=== PATIENT | male | born 1945 | race Caucasian/White ===

== ENCOUNTER 2018-09-22 00:23 | Outpatient (CLI) | payer MEDICARE | END 2018-09-22 00:24 | disposition critical access hospital (66) | LOC: EMS 00:23 | PROVIDERS: ATTEND Surgery | DX: S49.91XA Unspecified injury of right shoulder and upper arm, initial encounter (principal); W01.0XXA Fall on same level from slipping, tripping and stumbling without subsequent striking against object, initial encounter; Y93.01 Activity, walking, marching and hiking; Y92.003 Bedroom of unspecified non-institutional (private) residence as the place of occurrence of the external cause | CPT/HCPCS: A0425; A0429 ==

== ENCOUNTER 2018-09-22 00:24 | Emergency (ER) | payer MEDICARE ==
--- NOTE | 2018-09-22 00:43 | ED Physician Documentation ---
PD HPI Fall - Stated complaint Stated Complaint: GLF - Chief complaint Chief Complaint: Trauma Ext - History obtained from History obtained from: Patient - History of Present Illness Mechanism of injury: Tripped Fall distance: Standing position Where injury occurred: Home Timing - onset: Enter time (21:00), Today Injury(ies) location: Right Upper Extremity, Right Lower Extremity Pain level max: 9 Pain level now: 3 Quality of pain: Pain Associated symptoms: No: LOC Symptoms improve with: Rest, Position Worsens with: Movement, Palpation Contributing factors: No: Anticoagulated Similar symptoms before: Has not had sx before Recently seen: Not recently seen - Additional information Additional information: at approximately 9 PM, patient tripped and fell while walking his dog; patient fell onto his right side onto concrete, had sudden onset right shoulder pain. He was able to summon help from neighbors who then helped him back into his house and into bed. Patient tried to get out of bed after resting for a few hours and found that he could not move the right shoulder due to pain. Despite this, he was able to work his way to sitting up on the edge of the bed and tried to get up to use the bathroom, but fell to ground because of right hip pain when he tried to bear weight on the RLE. Review of Systems Cardiac: reports: Reviewed and negative Respiratory: reports: Reviewed and negative GI: reports: Reviewed and negative Musculoskeletal: reports: Extremity pain, Joint pain. denies: Neck pain, Back pain Neurologic: denies: Generalized weakness, Focal weakness, Numbness, Headache, Head injury, LOC PD PAST MEDICAL HISTORY - Past Medical History Past Medical History: Yes Cardiovascular: Hypertension, High cholesterol, Other Musculoskeletal: Gout Other Past Medical History: Angina - Past Surgical History Past Surgical History: Yes General: Gastric surgery Ortho: Hip replacement, Knee replacement, Other Cardiovascular: Coronary stent HEENT: Tonsil/Adenoidectomy - Present Medications Home Medications: Ambulatory Orders Medication Instructions Recorded Confirmed Allopurinol 1 tab PO DAILY 09/22/18 09/22/18 Atorvastatin [Lipitor] 10 mg PO DAILY 09/22/18 09/22/18 amLODIPine [Norvasc] 5 mg PO DAILY 09/22/18 09/22/18 oxyCODONE [Roxicodone] 5 mg PO Q4-6H #20 tablet 09/22/18 - Allergies Allergies/Adverse Reactions: Allergies Allergy/AdvReac Type Severity Reaction Status Date / Time No Known Drug Allergies Allergy Verified 09/22/18 00:49 - Social History Does the pt smoke?: No Smoking Status: Never smoker Does the pt drink ETOH?: Yes ETOH Use: Liquor Does the pt have substance abuse?: No - Immunizations Immunizations are current?: Yes - POLST Patient has POLST: No PD ED PE NORMAL - Vitals Vital signs reviewed: Yes - General General: Alert and oriented X 3, No acute distress (NAD at rest, painful distress with movement involving right shoulder, right hip), Well developed/nourished - HEENT HEENT: Atraumatic, Moist mucous membranes - Neck Neck: No bony TTP - Cardiac Cardiac: RRR, No murmur - Respiratory Respiratory: No respiratory distress, Clear bilaterally - Abdomen Abdomen: Soft, Non tender - Back Back: No spinal TTP - Derm Derm: Normal color, Warm and dry - Neuro Neuro: Alert and oriented X 3, 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, No motor deficit, No sensory deficit, Normal speech Eye Opening: Spontaneous Motor: Obeys Commands Verbal: Oriented GCS Score: 15 PD ED PE EXPANDED - Extremities Extremities: Tenderness (mild TTP right hip (zymbyef-xp-qbyfsl pressure)), Limited ROM (mild limited flexion, abduction right hip due to pain) JANETT UE/Hands Visual: 1 - swelling, tenderness Results - Vitals Vitals: Vital Signs - 24 hr 09/22/18 09/22/18 09/22/18 00:28 01:35 02:19 Temperature 36.8 C Heart Rate 72 70 73 Respiratory 18 16 16 Rate Blood Pressure 158/87 H 171/87 H 164/86 H O2 Saturation 96 95 96 09/22/18 09/22/18 09/22/18 02:45 04:58 06:22 Temperature Heart Rate 74 68 64 Respiratory 16 16 18 Rate Blood Pressure 163/92 H 150/71 H 153/80 H O2 Saturation 95 99 95 09/22/18 09/22/18 10:11 13:16 Temperature Heart Rate 60 73 Respiratory 18 18 Rate Blood Pressure 153/110 H 163/94 H O2 Saturation 96 97 Oxygen O2 Source Room air - Labs Labs: Laboratory Tests 09/22/18 09/22/18 00:35 00:35 WBC 13.1 H RBC 5.02 Hgb 15.2 Hct 46.4 MCV 92.3 MCH 30.3 MCHC 32.8 RDW 16.0 H Plt Count 276 MPV 7.7 Neut # (Auto) 10.6 H Lymph # (Auto) 1.3 L [place] # (Auto) 1.0 Eos # (Auto) 0.1 Baso # (Auto) 0.0 Absolute Nucleated RBC 0.00 Nucleated RBC % 0.0 Sodium 136 Potassium 3.9 Chloride 99 L Carbon Dioxide 28 Anion Gap 9.0 BUN 15 Creatinine 0.7 Estimated GFR (MDRD) 110 Glucose 107 H Calcium 9.1 Total Bilirubin 0.4 AST 34 ALT 29 Alkaline Phosphatase 66 Total Protein 7.2 Albumin 4.3 Globulin 2.9 Albumin/Globulin Ratio 1.5 Lipase 31 Ethyl Alcohol 13.4 - Rads (name of study) xray right shoulder Radiology: Prelim report reviewed, See rad report xray right hip Radiology: Prelim report reviewed, See rad report CT right hip Radiology: Prelim report reviewed, See rad report PD MEDICAL DECISION MAKING - ED course Complexity details: reviewed results, re-evaluated patient, considered differential, d/w patient ED course: D/W Dr. Abrams; recommends sling for RUE but this injury does not necessitate admission to hospital. We also discussed the hip xrays and it was decided CT hip would be performed to further look for injury. However, if no fracture on CT, there is no indication for hospitalization from orthopedic standpoint. CT hip does not demonstrate fracture. However, patient is only able to bear very minimal weight on RLE, and cannot otherwise move the RLE to take a step (due to pain with movement). D/W Dr. Verde; he recommends hold in ED for SW consult for consideration of placement options. S/O to Dr. Cisneros (on-coming EDMD) at 7 AM pending SW consult as well as MRI (right hip) results. Departure - Departure Disposition: 01 Home, Self Care Clinical Impression: Hip fracture Qualifiers: Encounter type: initial encounter Fracture type: closed Laterality: right Qualified Code(s): S72.001A - Fracture of unspecified part of neck of right femur, initial encounter for closed fracture Shoulder fracture Qualifiers: Encounter type: initial encounter Fracture type: closed Laterality: right Qualified Code(s): S42.91XA - Fracture of right shoulder girdle, part unspecified, initial encounter for closed fracture Condition: Good Instructions: Fx Hip, ED Fx Shoulder Follow-Up: Braydon Cochran MD [Primary Care Provider] - Romeo Dubon MD [Provider Admit Priv/Credential] - Prescriptions: oxyCODONE [Roxicodone] 5 mg PO Q4-6H #20 tablet Comments: You fractured both the shoulder and the hip Both are stable fractures and orthopedics advises you should follow up in their office but do not need surgery For the shoulder injury you should wear the sling for comfort and stabilization but need to do some gentle pendulum exercises every day to prevent the shoulder from developing adhesions and scar tissue For the hip you can touch touch weight bear with a walker - but not yet because you cannot use a walker with your broken arm I have prescribed medication for the pain - you will need to have your primary care doctor prescribe any refills because pain medication prescriptions are carefully monitored Recommend that patient receive home health physical therapy while recovering at [facility] Discharge Date/Time: 09/22/18 15:42
--- NOTE | 2018-09-22 01:47 | XRAY Report ---
Reason: fall, pain, deformity Procedure Date: 09/22/2018 Accession Number: [id number] / [id number] Procedure: XR - Humerus RT CPT Code: FULL RESULT: EXAM: RIGHT SHOULDER RADIOGRAPHY RIGHT HUMERUS RADIOGRAPHY EXAM DATE: 09/22/2018 12:51 AM. CLINICAL HISTORY: Fall, pain, deformity. COMPARISON: HUMERUS RT 09/22/2018 12:51 AM. TECHNIQUE: 2 views shoulder. 2 views humerus. FINDINGS: Bones: There is a right-sided glenohumeral prosthesis. There is a mildly comminuted and mildly displaced obliquely oriented proximal humeral shaft fracture in the periprosthesis region. No definite evidence of loosening evident on this exam. Fracture deformities of the right lateral ribs, old in appearance. Joints: Prosthesis at the right glenohumeral joint. No dislocation is demonstrated. Soft Tissues: There is mild localized soft tissue swelling. IMPRESSION: 1. Mildly comminuted and displaced fracture of the proximal humeral shaft adjacent to the prosthesis. 2. No dislocation evident. RADIA RADIA
--- NOTE | 2018-09-22 01:47 | XRAY Report ---
Reason: fall, pain, deformity Procedure Date: 09/22/2018 Accession Number: [id number] / [id number] Procedure: XR - Shoulder 2 View RT CPT Code: FULL RESULT: EXAM: RIGHT SHOULDER RADIOGRAPHY RIGHT HUMERUS RADIOGRAPHY EXAM DATE: 09/22/2018 12:51 AM. CLINICAL HISTORY: Fall, pain, deformity. COMPARISON: HUMERUS RT 09/22/2018 12:51 AM. TECHNIQUE: 2 views shoulder. 2 views humerus. FINDINGS: Bones: There is a right-sided glenohumeral prosthesis. There is a mildly comminuted and mildly displaced obliquely oriented proximal humeral shaft fracture in the periprosthesis region. No definite evidence of loosening evident on this exam. Fracture deformities of the right lateral ribs, old in appearance. Joints: Prosthesis at the right glenohumeral joint. No dislocation is demonstrated. Soft Tissues: There is mild localized soft tissue swelling. IMPRESSION: 1. Mildly comminuted and displaced fracture of the proximal humeral shaft adjacent to the prosthesis. 2. No dislocation evident. RADIA RADIA
--- NOTE | 2018-09-22 01:51 | XRAY Report ---
Reason: fall, pain, limited ROM Procedure Date: 09/22/2018 Accession Number: [id number] / [id number] Procedure: XR - Hip w/Pelvis 2-3V RT CPT Code: FULL RESULT: EXAM: RIGHT HIP AND PELVIS RADIOGRAPHY EXAM DATE: 09/22/2018 12:51 AM. HISTORY: Fall, pain, limited ROM. COMPARISONS: None. TECHNIQUE: 1 view of the pelvis and 1 view of the hip. A total of 3 exposures are provided for review. FINDINGS: Bones: Bones are severely osteopenic. No definite acute fracture evident on this exam. Sacrum is obscured by overlying gas and fecal matter. Joints: There is a right total hip prosthesis without evidence of loosening or infection seen at this time. Mild left hip degenerative change. Severe symphysis pubis degenerative change. Severe lower lumbar degenerative change. Soft Tissues: Normal. No soft tissue swelling. IMPRESSION: No definite acute bony abnormality demonstrated. Osteopenia reduces sensitivity and specificity. If the patient is unable to bear weight, further assessment could be considered with MRI. RADIA
[2018-09-22 02:33] LABS: BASOPHILS % (AUTO) 0.3 %; EOSINOPHILS # (AUTO) 0.1 10^3/uL (0.0-0.7); EOSINOPHILS % (AUTO) 0.9 %; HGB - HEMOGLOBIN 15.2 g/dL (14.0-18.0); LYMPHOCYTES # (AUTO) 1.3 10^3/uL (1.5-3.5); LYMPHOCYTES % (AUTO) 10.3 %; MEAN CORPUSCULAR HEMOGLOBIN 30.3 pg (27.0-31.0); MEAN CORPUSCULAR HGB CONC 32.8 g/dL (32.0-36.0); MEAN CORPUSCULAR VOLUME 92.3 fL (80.0-94.0); MEAN PLATELET VOLUME 7.7 fL (7.4-11.4); MONOCYTES % (AUTO) 7.6 %; NEUTROPHILS # (AUTO) 10.6 10^3/uL (1.5-6.6); NEUTROPHILS % (AUTO) 80.9 %; PLT - PLATELET COUNT 276 10^3/uL (130-450); RED BLOOD COUNT 5.02 10^6/uL (4.70-6.10); WHITE BLOOD COUNT 13.1 x10^3/uL (4.8-10.8)
[2018-09-22 02:42] LABS: ALBUMIN 4.3 g/dL (3.2-5.5); ALBUMIN/GLOBULIN RATIO 1.5 (1.0-2.2); BILIRUBIN,TOTAL 0.4 mg/dL (0.2-1.0); CALCIUM 9.1 mg/dL (8.5-10.3); CREATININE 0.7 mg/dL (0.6-1.2); TOTAL PROTEIN 7.2 g/dL (6.7-8.2)
--- NOTE | 2018-09-22 02:54 | CT Report ---
Reason: right hip pain, unable to bear weight Procedure Date: 09/22/2018 Accession Number: [id number] / [id number] Procedure: CT - Lower Extremity Right W/O CPT Code: FULL RESULT: EXAM: RIGHT HIP CT WITHOUT CONTRAST EXAM DATE: 09/22/2018 02:42 AM. CLINICAL HISTORY: Right hip pain, unable to bear weight. COMPARISON: HIP W/PELVIS 2-3V RT 09/22/2018 12:51 AM. TECHNIQUE: Thin-section axial images were acquired of the hip without contrast. Post-processing: Coronal and sagittal reformats. Other: None. In accordance with CT protocol optimization, one or more of the following dose reduction techniques were utilized for this exam: automated exposure control, adjustment of mA and/or KV based on patient size, or use of iterative reconstructive technique. FINDINGS: Bones: The bones are diffusely osteopenic. There are no fractures of the pelvis. There is a total right hip replacement. There are no dislocations. There are pars defects at the L5 level of the spine and grade 2 spondylolisthesis. There is autofusion across the level of this disk with large bridging osteophytes. Joints: Total right hip replacement. The left hip is intact. No fractures nor dislocations. Musculature: Normal. No fatty atrophy. Other: There is a large amount of stool in the colon. IMPRESSION: 1. No acute fractures nor dislocations. 2. Osteoporosis. 3. 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 RADIA ADDENDUM: 09/22/18 09:51 After further review, there is a subtle, thin, linear, transversely oriented, lucent focus with associated cortical discontinuity at the lateral, subtrochanteric portion of the proximal right femur. This is also seen on the corresponding radiographs from 09/22/2018, and is suspicious for a nondisplaced incomplete fracture. The linear lucent focus is approximately 6.3 cm distal to the superior margin of the greater trochanter. Findings discussed with Dr. Cisneros on 09/22/2018, time 9:59 AM.
[2018-09-22] MEDS ORDERED: MORPHINE 2 MG/ML CARPUJECT IVP STA (04:15)
--- NOTE | 2018-09-22 09:52 | MRI Report ---
Reason: fall, injury, unable to weight-bear Procedure Date: 09/22/2018 Accession Number: [id number] / [id number] Procedure: MRI - Hip RT W/O CPT Code: FULL RESULT: EXAM: RIGHT HIP MRI WITHOUT CONTRAST EXAM DATE: 09/22/2018 09:26 AM. CLINICAL HISTORY: Unable to bear weight after the fall. Previous right hip arthroplasty. COMPARISON: CT right hip from 09/22/2018. TECHNIQUE: Multiplanar, multisequence T1-weighted and fluid-sensitive, small jjujj-hl-wrhc sequences of the hip and large aoqsm-tu-yktj sequences of the pelvis without contrast. Other: None. FINDINGS: As seen on the previous CT, there are postoperative changes from previous right total hip arthroplasty. The right hip prosthesis causes artifact. Therefore, evaluation of the osseous structures and adjacent soft tissues of the right hip is technically limited. No definitive fracture or bone lesion is seen. There is edema within the visualized proximal aspect of the vastus intermedius muscle. No hip dislocation or joint effusion. Pelvic Cavity: The visualized viscera are unremarkable. No lymphadenopathy. No free fluid in the pelvis. Other: The visualized sciatic nerve is unremarkable. No bursitis. The subcutaneous tissues are unremarkable. IMPRESSION: 1. Previous right total hip arthroplasty. The right hip prosthesis causes artifact, and technically limits evaluation of the osseous structures and adjacent soft tissues at the right hip. 2. No definite MR evidence of acute fracture or bone lesion. 3. Edema within the visualized proximal aspect of the vastus intermedius muscle. RADIA MUSCULOSKELETAL RADIOLOGY SECTION ADDENDUM: 09/22/18 10:00 The edema within the vastus intermedius muscle is suggestive of strain or contusion. Findings discussed with Dr. Cisneros on 09/22/2018, time 9:59 AM.
--- NOTE | 2018-09-22 10:01 | ED Physician Documentation ---
History of Present Illness - Stated complaint Stated Complaint: GLF - Chief complaint Chief Complaint: Trauma Ext Review of Systems Musculoskeletal: reports: Extremity pain PD PAST MEDICAL HISTORY - Past Medical History Past Medical History: Yes Cardiovascular: Hypertension, High cholesterol, Other Musculoskeletal: Gout Other Past Medical History: Angina - Past Surgical History Past Surgical History: Yes General: Gastric surgery Ortho: Hip replacement, Knee replacement, Other Cardiovascular: Coronary stent HEENT: Tonsil/Adenoidectomy - Present Medications Home Medications: Ambulatory Orders Medication Instructions Recorded Confirmed Allopurinol 1 tab PO DAILY 09/22/18 09/22/18 Atorvastatin [Lipitor] 10 mg PO DAILY 09/22/18 09/22/18 amLODIPine [Norvasc] 5 mg PO DAILY 09/22/18 09/22/18 oxyCODONE [Roxicodone] 5 mg PO Q4-6H #20 tablet 09/22/18 - Allergies Allergies/Adverse Reactions: Allergies Allergy/AdvReac Type Severity Reaction Status Date / Time No Known Drug Allergies Allergy Verified 09/22/18 00:49 - Social History Does the pt smoke?: No Smoking Status: Never smoker Does the pt drink ETOH?: Yes ETOH Use: Liquor Does the pt have substance abuse?: No - Immunizations Immunizations are current?: Yes - POLST Patient has POLST: No Results - Vitals Vitals: Vital Signs - 24 hr 09/22/18 09/22/18 09/22/18 00:28 01:35 02:19 Temperature 36.8 C Heart Rate 72 70 73 Respiratory 18 16 16 Rate Blood Pressure 158/87 H 171/87 H 164/86 H O2 Saturation 96 95 96 09/22/18 09/22/18 09/22/18 02:45 04:58 06:22 Temperature Heart Rate 74 68 64 Respiratory 16 16 18 Rate Blood Pressure 163/92 H 150/71 H 153/80 H O2 Saturation 95 99 95 09/22/18 09/22/18 10:11 13:16 Temperature Heart Rate 60 73 Respiratory 18 18 Rate Blood Pressure 153/110 H 163/94 H O2 Saturation 96 97 Oxygen O2 Source Room air - Labs Labs: Laboratory Tests 09/22/18 09/22/18 00:35 00:35 WBC 13.1 H RBC 5.02 Hgb 15.2 Hct 46.4 MCV 92.3 MCH 30.3 MCHC 32.8 RDW 16.0 H Plt Count 276 MPV 7.7 Neut # (Auto) 10.6 H Lymph # (Auto) 1.3 L [place] # (Auto) 1.0 Eos # (Auto) 0.1 Baso # (Auto) 0.0 Absolute Nucleated RBC 0.00 Nucleated RBC % 0.0 Sodium 136 Potassium 3.9 Chloride 99 L Carbon Dioxide 28 Anion Gap 9.0 BUN 15 Creatinine 0.7 Estimated GFR (MDRD) 110 Glucose 107 H Calcium 9.1 Total Bilirubin 0.4 AST 34 ALT 29 Alkaline Phosphatase 66 Total Protein 7.2 Albumin 4.3 Globulin 2.9 Albumin/Globulin Ratio 1.5 Lipase 31 Ethyl Alcohol 13.4 PD MEDICAL DECISION MAKING - ED course ED course: assumed care 7 AM 73 male tripped and fell last night fell on R side has shoulder and hip pain helped back into house and bed by neighbors later had to go to the bathroom tried to get up and could not bear weight on his R leg and fell again no head neck injury well otherwise no blood thinners 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 by 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 cutting machine 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 Dr Vazquez xray of RUE showed a periprosthetic humerus fx, d/w ortho - rec sling and outpt follow up xray and then CT of hip non diagnostic 2/2 osteopenia - attempted road test and pt unable to bear wt at all admit requested but deferred by hospitalist turned over to me pending SW eval as pt cannot walk and thus cannot go home I went to see the pt awake alert cooperative pain at rest well controlled RUE in a sling, MSV intact - had rings on which were removed by nursing RLE TTP lateral hip, not short or roatetd, able to flex and ext but not able to ABD hip at all due to severe pain rad rec was to get MRI so that has been ordered and pending call from rad at 10 AM - he states MRI is diff to interpret 2/2 artifact but that on his review of xray and CT there is a linear lucency to the lateral subtroch R femur that does not appear to be complete nor extend to the prosthesis with adjacent hematoma of the vastus intermedius d/w ortho Dr Dubon who also sees fx line on plain films medially as well at laterally - advises tx is conservative toe touch wt bearing with a walker of course he cannot use a walker because he also broke his arm so cant go home S assisted with placement for PT and recovery per SW rec I documented need for PT also I rxed pain meds until pt can get same from his own PMD Departure - Departure Disposition: 01 Home, Self Care Clinical Impression: Hip fracture Qualifiers: Encounter type: initial encounter Fracture type: closed Laterality: right Qualified Code(s): S72.001A - Fracture of unspecified part of neck of right femur, initial encounter for closed fracture Shoulder fracture Qualifiers: Encounter type: initial encounter Fracture type: closed Laterality: right Qualified Code(s): S42.91XA - Fracture of right shoulder girdle, part unspecified, initial encounter for closed fracture Condition: Good Instructions: Fx Hip, ED Fx Shoulder Follow-Up: Braydon Cochran MD [Primary Care Provider] - Romeo Dubon MD [Provider Admit Priv/Credential] - Prescriptions: oxyCODONE [Roxicodone] 5 mg PO Q4-6H #20 tablet Comments: You fractured both the shoulder and the hip Both are stable fractures and orthopedics advises you should follow up in their office but do not need surgery For the shoulder injury you should wear the sling for comfort and stabilization but need to do some gentle pendulum exercises every day to prevent the shoulder from developing adhesions and scar tissue For the hip you can touch touch weight bear with a walker - but not yet because you cannot use a walker with your broken arm I have prescribed medication for the pain - you will need to have your primary care doctor prescribe any refills because pain medication prescriptions are carefully monitored Recommend that patient receive home health physical therapy while recovering at [facility] Discharge Date/Time: 09/22/18 15:42
[2018-09-22] MEDS ORDERED: oxyCODONE 5 MG TABLET PO STA (10:46)
[2018-09-22 13:17] VITALS: BP 163/94
== END 2018-09-22 15:42 | disposition home or self-care (01) ==
LOC: EDUNIT# → ED 00:24
DX: S42.351A Displaced comminuted fracture of shaft of humerus, right arm, initial encounter for closed fracture (principal); S72.001A Fracture of unspecified part of neck of right femur, initial encounter for closed fracture; W01.0XXA Fall on same level from slipping, tripping and stumbling without subsequent striking against object, initial encounter; Y93.K1 Activity, walking an animal; Y92.007 Garden or yard of unspecified non-institutional (private) residence as the place of occurrence of the external cause; W06.XXXA Fall from bed, initial encounter; Y92.003 Bedroom of unspecified non-institutional (private) residence as the place of occurrence of the external cause; M85.88 Other specified disorders of bone density and structure, other site; M81.0 Age-related osteoporosis without current pathological fracture; I10 Essential (primary) hypertension; Z96.641 Presence of right artificial hip joint; Z96.611 Presence of right artificial shoulder joint
CPT/HCPCS: 36415; 73030; 73060; 73502; 73700; 73721; 80053; 83690; 85025; 96374; 99284; 99285; A9270; 80320

== ENCOUNTER 2019-07-31 22:30 | Outpatient (CLI) | payer MEDICARE | END 2019-07-31 22:31 | disposition critical access hospital (66) | LOC: EMS 22:30 | PROVIDERS: ATTEND Surgery | DX: S09.90XA Unspecified injury of head, initial encounter (principal); W01.0XXA Fall on same level from slipping, tripping and stumbling without subsequent striking against object, initial encounter; Y93.01 Activity, walking, marching and hiking; Y92.480 Sidewalk as the place of occurrence of the external cause | CPT/HCPCS: A0425; A0429 ==

== ENCOUNTER 2019-07-31 22:47 | Emergency (ER) | payer MEDICARE ==
[2019-07-31 23:24] LABS: BASOPHILS # (AUTO) 0.1 10^3/uL (0.0-0.1); BASOPHILS % (AUTO) 0.9 %; EOSINOPHILS # (AUTO) 0.6 10^3/uL (0.0-0.7); EOSINOPHILS % (AUTO) 6.3 %; HGB - HEMOGLOBIN 15.5 g/dL (14.0-18.0); LYMPHOCYTES # (AUTO) 3.2 10^3/uL (1.5-3.5); LYMPHOCYTES % (AUTO) 33.1 %; MEAN CORPUSCULAR HEMOGLOBIN 31.6 pg (27.0-31.0); MEAN CORPUSCULAR HGB CONC 33.8 g/dL (32.0-36.0); MEAN CORPUSCULAR VOLUME 93.5 fL (80.0-94.0); MEAN PLATELET VOLUME 8.8 fL (7.4-11.4); MONOCYTES # (AUTO) 1.1 10^3/uL (0.0-1.0); MONOCYTES % (AUTO) 10.9 %; NEUTROPHILS # (AUTO) 4.6 10^3/uL (1.5-6.6); NEUTROPHILS % (AUTO) 48.1 %; PLT - PLATELET COUNT 292 10^3/uL (130-450); RED BLOOD COUNT 4.91 10^6/uL (4.70-6.10); WHITE BLOOD COUNT 9.7 x10^3/uL (4.8-10.8)
[2019-07-31 23:40] LABS: ALBUMIN/GLOBULIN RATIO 1.1 (1.0-2.2); BILIRUBIN,TOTAL 0.6 mg/dL (0.2-1.0); CREATININE 0.6 mg/dL (0.6-1.2); TOTAL PROTEIN 7.5 g/dL (6.7-8.2)
--- NOTE | 2019-07-31 23:58 | CT Report ---
Reason: fall head injury Procedure Date: 07/31/2019 Accession Number: [id number] / [id number] Procedure: CT - CERVICAL SPINE WO CPT Code: FULL RESULT: EXAM: CT CERVICAL SPINE WITHOUT CONTRAST DATE: 07/31/2019 11:34 PM. HISTORY: Fall head injury. Neck pain COMPARISONS: None. TECHNIQUE: Thin-section axial images were acquired of the cervical spine without contrast. Post-processing: Coronal and sagittal reformats. Other: None. In accordance with CT protocol optimization, one or more of the following dose reduction techniques were utilized for this exam: automated exposure control, adjustment of mA and/or KV based on patient size, or use of iterative reconstructive technique. FINDINGS: Alignment: No scoliosis or spondylolisthesis. No evidence of traumatic subluxation. Bones: No fracture or bone lesion. Interspace Levels/Facets: C1-C2: Degenerative change is noted at the anterior C1-C2 junction. Mild ligamentous hypertrophy is visualized. There is no significant central canal stenosis. C2-C3: Unremarkable. C3-C4: Marked disk height loss is visualized. Posterior disk osteophyte complex appears to produce significant central canal stenosis. Uncovertebral hypertrophy produces severe bilateral foraminal stenosis. C4-C5: Moderate disk height loss is visualized. Posterior disk osteophyte complex produces moderate narrowing of the central canal. Uncovertebral hypertrophy produces moderate right and mild left foraminal stenosis. C5-C6: Mild degenerative change. No significant stenosis. C6-C7: Mild disk height loss is noted. Minimal posterior discussed effect complex is visualized. Uncovertebral hypertrophy produces minimal neuroforaminal narrowing. C7-T1: Unremarkable. Musculature: Normal. No fatty atrophy. Other: The paravertebral and prevertebral soft tissues are unremarkable. The lung apices are clear. Atherosclerotic calcification is visualized in the carotid arteries. IMPRESSION: 1. No evidence of acute fracture or traumatic subluxation in the cervical spine. 2. Advanced cervical spondylosis at the C3-C4 and C4-C5 levels and to a lesser extent diffusely throughout the cervical spine, as outlined in detail above. RADIA
--- NOTE | 2019-08-01 00:30 | CT Report ---
Reason: fall head injury Procedure Date: 07/31/2019 Accession Number: [id number] / [id number] Procedure: CT - HEAD WO CPT Code: FULL RESULT: EXAM: CT HEAD EXAM DATE: 07/31/2019 11:35 PM. CLINICAL HISTORY: Fall head injury. COMPARISON: BRAIN 08/06/2006 11:12 AM. TECHNIQUE: Multiaxial CT images were obtained from the foramen magnum to the vertex. Reformats: Sagittal and coronal. IV contrast: None. In accordance with CT protocol optimization, one or more of the following dose reduction techniques were utilized for this exam: automated exposure control, adjustment of mA and/or KV based on patient size, or use of iterative reconstructive technique. FINDINGS: Parenchyma: No intraparenchymal hemorrhage. No evidence of mass, midline shift, or CT findings of infarction. Rubi-white differentiation is distinct. Moderate patchy periventricular hypodensity is noted, nonspecific but most likely due to chronic microvascular ischemia. 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 Extraaxial Spaces: Normal for age. No subdural or epidural collections identified. Ventricles: Mild ventricular prominence is noted. Sinuses and Orbits: Moderate mucosal thickening is visualized throughout the ethmoid air cells and to a lesser extent maxillary sinuses. Changes of cataract extraction are noted bilaterally. Bones: No evidence of fracture or calvarial defect. Other: Extensive vascular calcification is visualized in the cavernous segments of the bilateral ICAs and proximal vertebral arteries. IMPRESSION: 1. No evidence of acute traumatic injury or other acute intracranial pathology. 2. Moderate white matter changes typical of chronic microvascular ischemia. Old type infarct in the right basal ganglia. 3. Mild diffuse atrophy and other age-related changes, as detailed above. RADIA
--- NOTE | 2019-08-01 00:34 | ED Physician Documentation ---
PD HPI HEAD INJURY - Stated complaint Stated Complaint: FALL/ETOH - Chief complaint Chief Complaint: Laceration - History obtained from History obtained from: Patient, EMS - History of Present Illness Mechanism of head injury: Fell Where head injury occurred: Street Timing - onset: Today Location of injury: Left, Front Quality of pain: Pain Associated symptoms: No: LOC, AMS, Amnesia, Nausea / vomiting, Neck pain, Paresthesias, Seizures, Ear drainage, Nasal drainage Symptoms improve with: Rest Symptoms worsen with: Palpation, Movement Contributing factors: No: Anticoagulated Similar symptoms before: Has not had sx before Recently seen: Not recently seen - Additional information Additional information: Previously well 74-year-old male has gone to the music festival in [place] and he had some cider to drink. He states he had 3 or 4 ciders and then he was on his way to his car to go back home which is only 2 hours away and he tripped in the parking lot fell against a picnic bench fell against his chest and hit his head. He did not have loss of consciousness he is brought to the hospital with some bleeding to his face and he appears intoxicated. Review of Systems Constitutional: denies: Fever Eyes: denies: Decreased vision Ears: denies: Ear pain Nose: denies: Congestion Throat: denies: Sore throat Cardiac: denies: Chest pain / pressure, Palpitations Respiratory: denies: Dyspnea, Cough GI: denies: Abdominal Pain, Nausea, Vomiting : denies: Dysuria Skin: denies: Rash Musculoskeletal: reports: Neck pain. denies: Back pain, Extremity pain PD PAST MEDICAL HISTORY - Past Medical History Past Medical History: Yes Cardiovascular: Hypertension, High cholesterol, Other Musculoskeletal: Gout - Past Surgical History Past Surgical History: Yes General: Gastric surgery Ortho: Hip replacement, Knee replacement, Other Cardiovascular: Coronary stent HEENT: Tonsil/Adenoidectomy - Present Medications Home Medications: Ambulatory Orders Medication Instructions Recorded Confirmed Atorvastatin [Lipitor] 10 mg PO DAILY 09/22/18 07/31/19 RX: Allopurinol 1 tab PO DAILY 09/22/18 07/31/19 RX: amLODIPine [Norvasc] 5 mg PO DAILY 09/22/18 07/31/19 RX: oxyCODONE [Roxicodone] 5 mg PO Q4-6H #20 tablet 09/22/18 07/31/19 - Allergies Allergies/Adverse Reactions: Allergies Allergy/AdvReac Type Severity Reaction Status Date / Time No Known Drug Allergies Allergy Verified 07/31/19 22:56 - Social History Does the pt smoke?: No Smoking Status: Never smoker Does the pt drink ETOH?: Yes Does the pt have substance abuse?: No - Immunizations Immunizations are current?: Yes - POLST Patient has POLST: No PD ED PE NORMAL - Vitals Vital signs reviewed: Yes (hypertensive ) - General General: Alert and oriented X 3, Well developed/nourished, Other (appears in toxicated ) - HEENT HEENT: PERRL, EOMI, Ears normal, Other (dry mucous membranes and an abrasion to the left zygomatic area. There is no depression or crepitance to suggest fracture. ) - Neck Neck: Supple, no meningeal sign, No bony TTP, Other (There is some tenderness to the paraspinous muscles of the neck.. 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, No motor deficit, No sensory deficit, Other (speech is dysarthric) Eye Opening: Spontaneous Motor: Obeys Commands Verbal: Oriented GCS Score: 15 - Psych Psych: Normal affect, Other (mood is extra happy consistent with intoxication) Results - Vitals Vitals: Vital Signs - 24 hr 07/31/19 07/31/19 08/01/19 22:45 23:32 00:40 Temperature 36.0 C L 36.5 C Heart Rate 75 58 L 88 Respiratory 18 16 18 Rate Blood Pressure 179/103 H 164/78 H 173/87 H O2 Saturation 98 97 99 Oxygen O2 Source Room air - Labs Labs: Laboratory Tests 07/31/19 07/31/19 23:20 23:20 WBC 9.7 RBC 4.91 Hgb 15.5 Hct 45.9 MCV 93.5 MCH 31.6 H MCHC 33.8 RDW 14.0 Plt Count 292 MPV 8.8 Neut # (Auto) 4.6 Lymph # (Auto) 3.2 [place] # (Auto) 1.1 H Eos # (Auto) 0.6 Baso # (Auto) 0.1 Absolute Nucleated RBC 0.00 Nucleated RBC % 0.0 Sodium 137 Potassium 4.1 Chloride 102 Carbon Dioxide 25 Anion Gap 10.0 BUN 16 Creatinine 0.6 Estimated GFR (MDRD) 131 Glucose 94 Calcium 9.0 Total Bilirubin 0.6 AST 34 ALT 26 Alkaline Phosphatase 52 Total Protein 7.5 Albumin 4.0 Globulin 3.5 Albumin/Globulin Ratio 1.1 Lipase 34 Ethyl Alcohol 148.7 - Rads (name of study) CT cervical spine Radiology: Prelim report reviewed (Impression: 1. No evidence of acute fracture or traumatic subluxation in the cervical spine. 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 No evidence of acute traumatic injury or other acute intracranial pathology. 2 Moderate white matter changes typical of chronic microvascular ischemia. Old type infarct in the right basal ganglia. 3 Mild diffuse atrophy and other age-related changes, as detailed above.), EMP read indepedently, See rad report PD MEDICAL DECISION MAKING - ED course Complexity details: reviewed results, re-evaluated patient, considered differential, d/w patient ED course: 7 His abrasion was attended to by the RN and he was dispositioned to home.4-year-old male arrives to the emergency department with a bloody face and alcohol intoxication after having a witnessed fall in which she did not have loss of consciousness. He appeared intoxicated when he arrived to the emergency department with some slurred speech and his blood alcohol was over 148. His level of intoxication was consistent with his blood level of alcohol and a CT of scan of his head and neck were without acute findings. Departure - Departure Disposition: 01 Home, Self Care Clinical Impression: Alcohol intoxication Qualifiers: Complication of substance-induced condition: uncomplicated Qualified Code(s): F10.920 - Alcohol use, unspecified with intoxication, uncomplicated Concussion Qualifiers: Encounter type: initial encounter Loss of consciousness presence/duration: without LOC Qualified Code(s): S06.0X0A - Concussion without loss of consciousness, initial encounter Facial abrasion Qualifiers: Encounter type: initial encounter Qualified Code(s): S00.81XA - Abrasion of other part of head, initial encounter Condition: Stable Instructions: ED Abrasion, ED Alcohol Intoxication, ED Head Injury Closed Follow-Up: Braydon Cochran MD [Primary Care Provider] - Discharge Date/Time: 08/01/19 01:03
[2019-08-01 00:44] VITALS: BP 173/87
== END 2019-08-01 01:03 | disposition home or self-care (01) ==
LOC: EDUNIT# → ED 22:47
DX: F10.120 Alcohol abuse with intoxication, uncomplicated (principal); Y90.6 Blood alcohol level of 120-199 mg/100 ml; S06.0X0A Concussion without loss of consciousness, initial encounter; S00.81XA Abrasion of other part of head, initial encounter; W01.190A Fall on same level from slipping, tripping and stumbling with subsequent striking against furniture, initial encounter; Y93.01 Activity, walking, marching and hiking; Y92.414 Local residential or business street as the place of occurrence of the external cause; I10 Essential (primary) hypertension
CPT/HCPCS: 36415; 70450; 72125; 80053; 80320; 83690; 85025; 99284

== ENCOUNTER 2022-02-23 15:08 | Outpatient (CLI) | payer MEDICARE ==
--- NOTE | 2022-02-23 16:09 | DEXA Report ---
PROCEDURE: Dexa Spine and/or Hip INDICATIONS: ADULT IDIOPATHIC GENERALIZED OSTEOPOROSIS TECHNIQUE: Dual energy x-ray absorptiometry (DXA) was performed on a [employer] System. Regions measur ed are the AP Spine, femoral neck, and if needed forearm. COMPARISON: None. FINDINGS: Lumbar Spine: Bone Mineral Density 1.189 g/cm/cm,T score -0.3, normal Left Femoral Neck: Bone Mineral Density 0.754 g/cm/cm, T score -2.4, osteopenia Total : Bone Mineral Density 0.707 g/cm/cm, T score -2.7, osteoporosis (T score greater or equal to -1.0: NORMAL) (T score from -1.1 to -2.4: OSTEOPENIA) (T score less than or equal to -2.5 to: OSTEOPOROSIS) Impression: Bone mineral density as detailed above. Patients with diagnosis of osteoporosis or osteopenia should have regular bone mineral density assess ment. For those eligible for Medicare, routine testing is allowed once every 2 years. Testing frequ ency can be increased for patients who have rapidly progressing disease or for those who are receivin g medical therapy to restore bone mass. Reviewed by: Joe Hinojosa MD on 02/23/2022 4:08 PM PDT Approved by: Joe Hinojosa MD on 02/23/2022 4:08 PM PDT Station ID: [id number]
== END 2022-02-23 15:09 | disposition home or self-care (01) ==
LOC: DI 15:08
PROVIDERS: ATTEND Internal Medicine
DX: M81.0 Age-related osteoporosis without current pathological fracture (principal)

== ENCOUNTER 2022-12-13 16:55 | Outpatient (CLI) | payer MEDICARE | END 2022-12-13 16:56 | disposition critical access hospital (66) | LOC: EMS 16:55 | DX: M79.622 Pain in left upper arm (principal); R22.32 Localized swelling, mass and lump, left upper limb | CPT/HCPCS: A0425; A0429 ==

== ENCOUNTER 2022-12-13 17:13 | Emergency (ER) | payer MEDICARE ==
--- NOTE | 2022-12-13 17:30 | ED Physician Documentation ---
PD HPI UPPER EXT INJURY - Stated complaint Stated Complaint: ONSET SWELLING/PAIN - Chief complaint Chief Complaint: Ext Problem - History obtained from History obtained from: Patient - Additonal information Additional information: 77-year-old gentleman who is generally healthy except for a lot of bone and joint issues was reaching up a few days ago and developed slight pain in his left bicep and noted swelling there today. It is not very painful. He called his doctor's office and they referred him here after a 45-minute phone call, presumably to rule out DVT. Review of Systems Constitutional: denies: Fever, Chills Nose: reports: Reviewed and negative Throat: reports: Reviewed and negative Cardiac: reports: Reviewed and negative Respiratory: reports: Reviewed and negative PD PAST MEDICAL HISTORY - Past Medical History Cardiovascular: Hypertension, High cholesterol, Other Musculoskeletal: Gout - Past Surgical History Past Surgical History: Yes General: Gastric surgery Ortho: Hip replacement, Knee replacement, Other Cardiovascular: Coronary stent HEENT: Tonsil/Adenoidectomy - Present Medications Home Medications: Ambulatory Orders Medication Instructions Recorded Confirmed Atorvastatin [Lipitor] 10 mg PO DAILY 09/22/18 07/31/19 allopurinoL [Allopurinol] 1 tab PO DAILY 09/22/18 07/31/19 amLODIPine [Norvasc] 5 mg PO DAILY 09/22/18 07/31/19 oxyCODONE [Roxicodone] 5 mg PO Q4-6H #20 tablet 09/22/18 07/31/19 - Allergies Allergies/Adverse Reactions: Allergies Allergy/AdvReac Type Severity Reaction Status Date / Time No Known Drug Allergies Allergy Verified 07/31/19 22:56 - Social History Does the pt smoke?: No Smoking Status: Never smoker Does the pt drink ETOH?: Yes Does the pt have substance abuse?: No - Immunizations Immunizations are current?: Yes - POLST Patient has POLST: No PD ED PE NORMAL - Vitals Vital signs reviewed: Yes - General General: Alert and oriented X 3, No acute distress - Extremities Extremities: Other (He does have significant swelling without tenderness of the left bicep. Bicipital function seems normal. Distal radial pulses are normal. Full range of motion.) - Neuro Neuro: Alert and oriented X 3, Normal speech Results - Vitals Vitals: Vital Signs - 24 hr 12/13/22 12/13/22 17:18 19:11 Temperature 36.4 C L Heart Rate 60 64 Respiratory 16 18 Rate Blood Pressure 177/96 H 164/100 H O2 Saturation 98 98 Oxygen O2 Source Room air - Rads (name of study) Left upper extremity sonogram demonstrating bicep hematoma Radiology: Final report received, EMP read indepedently PD Medical Decision Making - ED course ED course: It appears that he has a bicep hematoma. He has excellent bicipital strength so I doubt a muscle tear. Orthopedic follow-up was advised. Departure - Departure Disposition: Home, Self Care Clinical Impression: Hematoma Condition: Good Record reviewed to determine appropriate education?: Yes Instructions: ED Hematoma Comments: As discussed, it appears that you have a hematoma in your left bicep. Clinically I do not think this is a muscle tear. It is not a "blood clot". It is reasonable to follow-up with your regular orthopedics office for this next week. You do have some fluid in the shoulder joint to that may need to be evaluated by your orthopedist. Tylenol as needed for pain. LUE sonogram: IMPRESSION: 1. No evidence for deep venous thrombosis of the left upper extremity. 2. Possible intramuscular hematoma of the left biceps versus partial muscle tear. 3. Nonspecific anterior left shoulder fluid collection which may represent a joint effusion.
--- OUTSIDE RECORDS SUMMARY | 2022-12-13 17:48 | EXTERNAL MEDICAL SUMMARY RPT | Continuity of Care Document ---
:1945 Author Organization [facility] Address [address] [place] [address] Phone Care Team Providers Name Role Phone Loni Justin Unavailable Unavailable Allergies No information. Encounters No information. Functional Status No information. Immunizations No information. Medications date description facility 2022-12-06 00:00 Allopurinol [facility] 2022-12-06 00:00 Atenolol [facility] 2022-12-06 00:00 Glucosamine Sulfate [facility] 2022-12-06 00:00 Celecoxib [facility] 2022-12-06 00:00 Amlodipine [facility] 2022-12-06 00:00 Amoxicillin [facility] 2022-12-06 00:00 Atorvastatin [facility] 2022-12-06 00:00 Alendronate [facility] Problems date description facility 2022-12-06 00:00 Spondylolist[facility] L5-S1 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 2022-12-06 00:00 Fracture of lumbar vertebra [facility] 2022-12-06 00:00 History of viral encephalitis [facility] 2022-12-06 00:00 History of knee surgery [facility] 2022-12-06 00:00 History of operative procedure on hip [facility] 2022-12-06 00:00 History of shoulder surgery [facility] 2022-12-06 11:56 Dorsalgia, unspecified [facility] 2022-12-07 13:29 Dorsalgia, unspecified [facility] 2022-12-11 [facility] 2022-12-06 00:00 XR lumbar spine, 4+ views [facility] Results/Labs test date author facility value unit interpret ation Result panel 1 (unknown) (no (unknown) (unknown) (no value) (units (unk nown) date) unknown) (unknown) (no (unknown) (unknown) 01/05/23 (units (unkno wn) date) unknown) (unknown) (no (unknown) (unknown) [id number] (units (unkno wn) date) unknown) (unknown) (no (unknown) (unknown) [address] [place] [address] (units (unknown) date) unknown) (unknown) (no (unknown) (unknown) Accession Number: (units (unknown) date) [id number] unknown) (unknown) (no (unknown) (unknown) Age/Sex: 77 / M (units (unknown) date) Date of Service: unknown) (unknown) (no (unknown) (unknown) [place] [address] (unit s (unknown) date) unknown) (unknown) (no (unknown) (unknown) Approved by: Pedro Pablo Gregoriounits (unknown) date) Karmon Lou on unknown) 12/06/2022 at 16:22 (unknown) (no (unknown) (unknown) Bones: Bilateral (units (unknown) date) 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 (units (unknown) date) unknown) (unknown) (no (unknown) (unknown) : 1945 (units (unknown) date) Acct:[id number] unknown) (unknown) (no (unknown) (unknown) Disc space (units (unk nown) date) narrowing present at unknown) L2-3 L5-S1. Sclerotic facet joints present (unknown) (no (unknown) (unknown) FINDINGS: (units (unkn own) date) unknown) (unknown) (no (unknown) (unknown) Generalized (units (un known) date) decreased osseous unknown) mineralization present. Grade 1 retrolisthesis (unknown) (no (unknown) (unknown) Grade 3 isthmic (units (unknown) date) spondylolisthesis at unknown) L5-S1. (unknown) (no (unknown) (unknown) IMPRESSION: (units (un known) date) unknown) (unknown) (no (unknown) (unknown) INDICATIONS: BACK (units (unknown) date) PAIN unknown) (unknown) (no (unknown) (unknown) Incidental note is (units (unknown) date) made of right hip unknown) prosthesis in good position. (unknown) (no (unknown) (unknown) [facility] (units (unknown) date) unknown) (unknown) (no (unknown) (unknown) Loc: RAD (units (unkno wn) date) unknown) (unknown) (no (unknown) (unknown) Multilevel (units (unk nown) date) degenerative disc unknown) disease and arthropathy (unknown) (no (unknown) (unknown) Ordering Provider: (units (unknown) date) Brandon Diallo D.O. unknown) (unknown) (no (unknown) (unknown) Osteopenic L1 (units ( unknown) date) compression unknown) fracture, uncertain age. (unknown) (no (unknown) (unknown) PROCEDURE: XR (units ( unknown) date) 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 MIN 4V unknown) (unknown) (no (unknown) (unknown) Patient: (units (unkno wn) date) Leeroy Guillermo MR#: unknown) [id number] (unknown) (no (unknown) (unknown) Procedure: XR (units ( unknown) date) lumbar spine min 4V unknown) (unknown) (no (unknown) (unknown) Signed (units (unkno wn) date) unknown) (unknown) (no (unknown) (unknown) Soft tissues: (units ( unknown) date) Atherosclerotic unknown) calcification in the abdominal aorta noted (unknown) (no (unknown) (unknown) TECHNIQUE: 5 views (units (unknown) date) of the lumbar spine unknown) were acquired, including bilateral (unknown) (no (unknown) (unknown) XRay Report (units (un known) date) unknown) (unknown) (no (unknown) (unknown) at L2-3 (units (unkno wn) date) unknown) (unknown) (no (unknown) (unknown) evidence of (units (un known) date) aneurysm. unknown) (unknown) (no (unknown) (unknown) loss. (units (unkno wn) date) unknown) (unknown) (no (unknown) (unknown) noted. Wedge-shaped (unit s (unknown) date) compression fracture unknown) at L1 noted with 40% anterior height (unknown) (no (unknown) (unknown) oblique views. (units (unknown) date) unknown) (unknown) (no (unknown) (unknown) spondylolisthesis. (units (unknown) date) unknown) (unknown) (no (unknown) (unknown) throughout. (units (un known) date) unknown) (unknown) (no (unknown) (unknown) without (units (unkno wn) date) unknown) Result panel 2 (unknown) (no (unknown) (unknown) (no value) (units (unk nown) date) unknown) (unknown) (no (unknown) (unknown) 12/06/22 (units (unkno wn) date) [History unknown) Confirmed 12/06/22] (unknown) (no (unknown) (unknown) 12/06/22 (units (unkno wn) date) unknown) (unknown) (no (unknown) (unknown) [id number] (units (unkno wn) date) unknown) (unknown) (no (unknown) (unknown) Accompanied by: (units (unknown) date) Self / Same As unknown) Patient (unknown) (no (unknown) (unknown) Age/Sex: 77 / M (units (unknown) date) Date of Service: unknown) (unknown) (no (unknown) (unknown) Allergies (units (unkn own) date) unknown) (unknown) (no (unknown) (unknown) [place], [place] (units ( unknown) date) [id number] unknown) (unknown) (no (unknown) (unknown) Attending Dr: (units ( unknown) date) Brandon Diallo unknown) D.O. (unknown) (no (unknown) (unknown) Bcomplex-C (units (unk nown) date) #13-folic acid 1 unknown) mg-vit D3 1,750 unit disintegrating tablet tab PO (unknown) (no (unknown) (unknown) DAILY 12/06/22 (units (unknown) date) [History unknown) Confirmed 12/06/22] (unknown) (no (unknown) (unknown) : 1945 (units (unknown) date) Acct:[id number] unknown) (unknown) (no (unknown) (unknown) Dept at (units (unkno wn) date) . unknown) (unknown) (no (unknown) (unknown) Documented By: (units (unknown) date) Brandon Diallo unknown) D.O. 12/06/22 1244 (unknown) (no (unknown) (unknown) Draft (units (unkno wn) date) unknown) (unknown) (no (unknown) (unknown) Intake Clinical (units (unknown) date) Staff unknown) (unknown) (no (unknown) (unknown) Intake performed (units (unknown) date) by: Krystle Clark unknown) (unknown) (no (unknown) (unknown) Intake (units (unkno wn) date) unknown) (unknown) (no (unknown) (unknown) Loc: PAIN (units (unkn own) date) unknown) (unknown) (no (unknown) (unknown) Medications (units (un known) date) unknown) (unknown) (no (unknown) (unknown) No Known Drug (units ( unknown) date) Allergies Allergy unknown) (Unverified 12/06/22 12:44) (unknown) (no (unknown) (unknown) Pain Visit (units (unk nown) date) unknown) (unknown) (no (unknown) (unknown) Patient: (units (unkno wn) date) Lereoy Guillermo unknown) MR#: [id number] (unknown) (no (unknown) (unknown) Reason For Visit (units (unknown) date) unknown) (unknown) (no (unknown) (unknown) Signed By: (units (unk nown) date) unknown) (unknown) (no (unknown) (unknown) [facility] ([facility] unknown) (unknown) (no (unknown) (unknown) This note may (units ( unknown) date) have been all or unknown) partially generated using voice recognition (unknown) (no (unknown) (unknown) Visit Reasons: (units (unknown) date) 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, 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 (unknown) (no (unknown) (unknown) [History (units (unkno wn) date) Confirmed unknown) 12/06/22] (unknown) (no (unknown) (unknown) alendronate 70 (units (unknown) date) mg tablet 70 mg unknown) PO QWEEK 12/06/22 [History Confirmed 12/06/22] (unknown) (no (unknown) (unknown) allopurinol 100 (units (unknown) date) mg tablet 100 mg unknown) PO DAILY 12/06/22 [History Confirmed 12/06/22] (unknown) (no (unknown) (unknown) amlodipine 10 mg (units (unknown) date) tablet 10 mg PO unknown) DAILY 12/06/22 [History Confirmed 12/06/22] (unknown) (no (unknown) (unknown) amoxicillin 500 (units (unknown) date) mg tablet 2,000 unknown) mg PO ONCE 12/06/22 [History Confirmed 12/06/22] (unknown) (no (unknown) (unknown) atenolol 100 mg (units (unknown) date) tablet 50 mg PO unknown) DAILY 12/06/22 [History Confirmed 12/06/22] (unknown) (no (unknown) (unknown) atorvastatin 40 (units (unknown) date) mg tablet 40 mg unknown) PO BEDTIME 12/06/22 [History Confirmed 12/06/22] (unknown) (no (unknown) (unknown) calcium 600 (units (un known) date) mg-FA 1 mg-B-D3 unknown) 500 unit-E 30 vhkh-mwinaxr-jif xtr capsule 1 cap PO (unknown) (no (unknown) (unknown) glucosamine (units (un known) date) sulfate 500 mg unknown) tablet (Glucosamine) 500 mg PO DAILY 12/06/22 (unknown) (no (unknown) (unknown) have occurred. (units (unknown) date) If there are any unknown) questions, please contact the Medical Records (unknown) (no (unknown) (unknown) may occur. (units (unk nown) date) Occasional unknown) wrong-word or 'sound-alike' substitutions may have (unknown) (no (unknown) (unknown) multivitamin 1 (units (unknown) date) tab PO DAILY unknown) 12/06/22 [History Confirmed 12/06/22] (unknown) (no (unknown) (unknown) occurred due to (units (unknown) date) the inherent unknown) limitations of voice recognition software. Please (unknown) (no (unknown) (unknown) omega (units (unkno wn) date) 1-kdq-ruq-fish unknown) oil 60 mg-90 mg-500 mg capsule (Fish Oil) 1 cap PO DAILY (unknown) (no (unknown) (unknown) read the note (units ( unknown) date) carefully and unknown) recognize, using context, where these substitutions (unknown) (no (unknown) (unknown) software. (units (unkn own) date) Although every unknown) effort is made to edit content, sweatband shaper errors (unknown) (no (unknown) (unknown) vitamin B (units (unkn own) date) complex (B unknown) Complex-Vitamin B12 tablet) 1 tab PO DAILY 12/06/22 Result panel 3 (unknown) (no (unknown) (unknown) (no value) (units (unk nown) date) unknown) (unknown) (no (unknown) (unknown) 12/06/22 (units (unkno wn) date) [History unknown) Confirmed 12/06/22] (unknown) (no (unknown) (unknown) 12/06/22 (units (unkno wn) date) unknown) (unknown) (no (unknown) (unknown) [id number] (units (unkno wn) date) unknown) (unknown) (no (unknown) (unknown) Accompanied by: (units (unknown) date) Self / Same As unknown) Patient (unknown) (no (unknown) (unknown) Age/Sex: 77 / M (units (unknown) date) Date of Service: unknown) (unknown) (no (unknown) (unknown) Allergies (units (unkn own) date) unknown) (unknown) (no (unknown) (unknown) [place], [place] (units ( unknown) date) [id number] unknown) (unknown) (no (unknown) (unknown) Attending Dr: (units ( unknown) date) Brandon Diallo unknown) D.O. (unknown) (no (unknown) (unknown) Bcomplex-C (units (unk nown) date) #13-folic acid 1 unknown) mg-vit D3 1,750 unit disintegrating tablet tab PO (unknown) (no (unknown) (unknown) DAILY 12/06/22 (units (unknown) date) [History unknown) Confirmed 12/06/22] (unknown) (no (unknown) (unknown) : 1945 (units (unknown) date) Acct:[id number] unknown) (unknown) (no (unknown) (unknown) Dept at (units (unkno wn) date) . unknown) (unknown) (no (unknown) (unknown) Documented By: (units (unknown) date) Brandon Diallo unknown) D.O. 12/06/22 1244 (unknown) (no (unknown) (unknown) Draft (units (unkno wn) date) unknown) (unknown) (no (unknown) (unknown) Family History (units (unknown) date) (Updated 12/06/22 unknown) @ 13:54 by Krystle Clark LPN) (unknown) (no (unknown) (unknown) Father Heart (units (u nknown) date) attack unknown) (unknown) (no (unknown) (unknown) H/O knee surgery (units (unknown) date) unknown) (unknown) (no (unknown) (unknown) H/O shoulder (units (u nknown) date) surgery unknown) (unknown) (no (unknown) (unknown) History of hip (units (unknown) date) surgery unknown) (unknown) (no (unknown) (unknown) Intake Clinical (units (unknown) date) Staff unknown) (unknown) (no (unknown) (unknown) Intake performed (units (unknown) date) by: Krystle Clark unknown) (unknown) (no (unknown) (unknown) Intake (units (unkno wn) date) unknown) (unknown) (no (unknown) (unknown) Loc: PAIN (units (unkn own) date) unknown) (unknown) (no (unknown) (unknown) Medications (units (un known) date) unknown) (unknown) (no (unknown) (unknown) Mother (units (unkno wn) date) Depression unknown) (unknown) (no (unknown) (unknown) No Known Drug (units ( unknown) date) Allergies Allergy unknown) (Unverified 12/06/22 12:44) (unknown) (no (unknown) (unknown) PFSH (units (unkno wn) date) unknown) (unknown) (no (unknown) (unknown) Pain Visit (units (unk nown) date) unknown) (unknown) (no (unknown) (unknown) Patient: (units (unkno wn) date) Leeroy Guillermo unknown) MR#: [id number] (unknown) (no (unknown) (unknown) Reason For Visit (units (unknown) date) unknown) (unknown) (no (unknown) (unknown) Signed By: (units (unk nown) date) unknown) (unknown) (no (unknown) (unknown) Sister (units (unkno wn) date) Depression unknown) (unknown) (no (unknown) (unknown) Surgical History (units (unknown) date) (Updated 12/06/22 unknown) @ 13:48 by Krystle Clark LPN) (unknown) (no (unknown) (unknown) [facility] ([facility] ([facility]) [facility] Management unknown) (unknown) (no (unknown) (unknown) This note may (units ( unknown) date) have been all or unknown) partially generated using voice recognition (unknown) (no (unknown) (unknown) Visit Reasons: (units (unknown) date) 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, 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) LSpine, lumbar spine (unknown) (no (unknown) (unknown) [History (units (unkno wn) date) Confirmed unknown) 12/06/22] (unknown) (no (unknown) (unknown) alendronate 70 (units (unknown) date) mg tablet 70 mg unknown) PO QWEEK 12/06/22 [History Confirmed 12/06/22] (unknown) (no (unknown) (unknown) allopurinol 100 (units (unknown) date) mg tablet 100 mg unknown) PO DAILY 12/06/22 [History Confirmed 12/06/22] (unknown) (no (unknown) (unknown) amlodipine 10 mg (units (unknown) date) tablet 10 mg PO unknown) DAILY 12/06/22 [History Confirmed 12/06/22] (unknown) (no (unknown) (unknown) amoxicillin 500 (units (unknown) date) mg tablet 2,000 unknown) mg PO ONCE 12/06/22 [History Confirmed 12/06/22] (unknown) (no (unknown) (unknown) atenolol 100 mg (units (unknown) date) tablet 50 mg PO unknown) DAILY 12/06/22 [History Confirmed 12/06/22] (unknown) (no (unknown) (unknown) atorvastatin 40 (units (unknown) date) mg tablet 40 mg unknown) PO BEDTIME 12/06/22 [History Confirmed 12/06/22] (unknown) (no (unknown) (unknown) calcium 600 (units (un known) date) mg-FA 1 mg-B-D3 unknown) 500 unit-E 30 hpeb-gzpvrtp-kjr xtr capsule 1 cap PO (unknown) (no (unknown) (unknown) glucosamine (units (un known) date) sulfate 500 mg unknown) tablet (Glucosamine) 500 mg PO DAILY 12/06/22 (unknown) (no (unknown) (unknown) have occurred. (units (unknown) date) If there are any unknown) questions, please contact the Medical Records (unknown) (no (unknown) (unknown) may occur. (units (unk nown) date) Occasional unknown) wrong-word or 'sound-alike' substitutions may have (unknown) (no (unknown) (unknown) multivitamin 1 (units (unknown) date) tab PO DAILY unknown) 12/06/22 [History Confirmed 12/06/22] (unknown) (no (unknown) (unknown) occurred due to (units (unknown) date) the inherent unknown) limitations of voice recognition software. Please (unknown) (no (unknown) (unknown) omega (units (unkno wn) date) 6-snq-qkl-fish unknown) oil 60 mg-90 mg-500 mg capsule (Fish Oil) 1 cap PO DAILY (unknown) (no (unknown) (unknown) read the note (units ( unknown) date) carefully and unknown) recognize, using context, where these substitutions (unknown) (no (unknown) (unknown) software. (units (unkn own) date) Although every unknown) effort is made to edit content, sweatband shaper errors (unknown) (no (unknown) (unknown) vitamin B (units (unkn own) date) complex (B unknown) Complex-Vitamin B12 tablet) 1 tab PO DAILY 12/06/22 Result panel 4 (unknown) (no (unknown) (unknown) (no value) (units (unk nown) date) unknown) (unknown) (no (unknown) (unknown) 12/06/22 (units (unkno wn) date) [History unknown) Confirmed 12/06/22] (unknown) (no (unknown) (unknown) 12/06/22 (units (unkno wn) date) unknown) (unknown) (no (unknown) (unknown) 14:11 (units (unkno wn) date) unknown) (unknown) (no (unknown) (unknown) [id number] (units (unkno wn) date) unknown) (unknown) (no (unknown) (unknown) Accompanied by: (units (unknown) date) Self / Same As unknown) Patient (unknown) (no (unknown) (unknown) Age/Sex: 77 / M (units (unknown) date) Date of Service: unknown) (unknown) (no (unknown) (unknown) Allergies (units (unkn own) date) unknown) (unknown) (no (unknown) (unknown) [place], [place] (units ( unknown) date) [id number] unknown) (unknown) (no (unknown) (unknown) Attending Dr: (units ( unknown) date) Brandon Diallo unknown) D.O. (unknown) (no (unknown) (unknown) BMI 26.5 (units (unkno wn) date) unknown) (unknown) (no (unknown) (unknown) BP 117/68 (units (unkn own) date) unknown) (unknown) (no (unknown) (unknown) Bcomplex-C (units (unk nown) date) #13-folic acid 1 unknown) mg-vit D3 1,750 unit disintegrating tablet tab PO (unknown) (no (unknown) (unknown) Blood Pressure (units (unknown) date) Location Rt unknown) brachial (unknown) (no (unknown) (unknown) DAILY 12/06/22 (units (unknown) date) [History unknown) Confirmed 12/06/22] (unknown) (no (unknown) (unknown) : 1945 (units (unknown) date) Acct:[id number] unknown) (unknown) (no (unknown) (unknown) Dept at (units (unkno wn) date) . unknown) (unknown) (no (unknown) (unknown) Documented By: (units (unknown) date) Brandon Diallo unknown) D.O. 12/06/22 1244 (unknown) (no (unknown) (unknown) Draft (units (unkno wn) date) unknown) (unknown) (no (unknown) (unknown) Family History (units (unknown) date) (Updated 12/06/22 unknown) @ 13:54 by Krystle Clark LPN) (unknown) (no (unknown) (unknown) Father Heart (units (u nknown) date) attack unknown) (unknown) (no (unknown) (unknown) H/O knee surgery (units (unknown) date) unknown) (unknown) (no (unknown) (unknown) H/O shoulder (units (u nknown) date) surgery unknown) (unknown) (no (unknown) (unknown) Height 5 ft 6 in (units (unknown) date) unknown) (unknown) (no (unknown) (unknown) History of hip (units (unknown) date) surgery unknown) (unknown) (no (unknown) (unknown) Intake Clinical (units (unknown) date) Staff unknown) (unknown) (no (unknown) (unknown) Intake Note: (units (u nknown) date) unknown) (unknown) (no (unknown) (unknown) Intake performed (units (unknown) date) by: Krystle Clark unknown) (unknown) (no (unknown) (unknown) Intake (units (unkno wn) date) unknown) (unknown) (no (unknown) (unknown) Is patient in (units ( unknown) date) pain?: Yes (HERE unknown) FOR 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) Pain scale (1-10): 5 (unknown) (no (unknown) (unknown) Loc: PAIN (units (unkn own) date) unknown) (unknown) (no (unknown) (unknown) Medications (units (un known) date) unknown) (unknown) (no (unknown) (unknown) Mother (units (unkno wn) date) Depression unknown) (unknown) (no (unknown) (unknown) No Known Drug (units ( unknown) date) Allergies Allergy unknown) (Unverified 12/06/22 12:44) (unknown) (no (unknown) (unknown) Oxygen Delivery (units (unknown) date) Method room air unknown) (unknown) (no (unknown) (unknown) PFSH (units (unkno wn) date) unknown) (unknown) (no (unknown) (unknown) Pain Scale (units (unk nown) date) unknown) (unknown) (no (unknown) (unknown) Pain Visit (units (unk nown) date) unknown) (unknown) (no (unknown) (unknown) Patient: (units (unkno wn) date) Leeroy Guillermo unknown) MR#: [id number] (unknown) (no (unknown) (unknown) Position Sitting (units (unknown) date) unknown) (unknown) (no (unknown) (unknown) Pulse 68 (units (unkno wn) date) unknown) (unknown) (no (unknown) (unknown) Pulse Oximetry (units (unknown) date) (%) 99 unknown) (unknown) (no (unknown) (unknown) Pulse Source (units (u nknown) date) Monitor unknown) (unknown) (no (unknown) (unknown) Reason For Visit (units (unknown) date) unknown) (unknown) (no (unknown) (unknown) Signed By: (units (unk nown) date) unknown) (unknown) (no (unknown) (unknown) Sister (units (unkno wn) date) Depression unknown) (unknown) (no (unknown) (unknown) Surgical History (units (unknown) date) (Updated 12/06/22 unknown) @ 13:48 by Krystle Clark LPN) (unknown) (no (unknown) (unknown) Temp 98.3 F (units (un known) date) unknown) (unknown) (no (unknown) (unknown) Temp Source (units (un known) date) Temporal Artery unknown) Scan (unknown) (no (unknown) (unknown) [facility] (units (unknown) date) Pain Management unknown) (unknown) (no (unknown) (unknown) This note may (units ( unknown) date) have been all or unknown) partially generated using voice recognition (unknown) (no (unknown) (unknown) Visit Reasons: (units (unknown) date) 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, 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) LSpine, lumbar spine (unknown) (no (unknown) (unknown) Vitals (units (unkno wn) date) unknown) (unknown) (no (unknown) (unknown) Weight 164 lb 8 (units (unknown) date) oz unknown) (unknown) (no (unknown) (unknown) [History (units (unkno wn) date) Confirmed unknown) 12/06/22] (unknown) (no (unknown) (unknown) alendronate 70 (units (unknown) date) mg tablet 70 mg unknown) PO QWEEK 12/06/22 [History Confirmed 12/06/22] (unknown) (no (unknown) (unknown) allopurinol 100 (units (unknown) date) mg tablet 100 mg unknown) PO DAILY 12/06/22 [History Confirmed 12/06/22] (unknown) (no (unknown) (unknown) amlodipine 10 mg (units (unknown) date) tablet 10 mg PO unknown) DAILY 12/06/22 [History Confirmed 12/06/22] (unknown) (no (unknown) (unknown) amoxicillin 500 (units (unknown) date) mg tablet 2,000 unknown) mg PO ONCE 12/06/22 [History Confirmed 12/06/22] (unknown) (no (unknown) (unknown) atenolol 100 mg (units (unknown) date) tablet 50 mg PO unknown) DAILY 12/06/22 [History Confirmed 12/06/22] (unknown) (no (unknown) (unknown) atorvastatin 40 (units (unknown) date) mg tablet 40 mg unknown) PO BEDTIME 12/06/22 [History Confirmed 12/06/22] (unknown) (no (unknown) (unknown) calcium 600 (units (un known) date) mg-FA 1 mg-B-D3 unknown) 500 unit-E 30 jyqj-dntiioy-sah xtr capsule 1 cap PO (unknown) (no (unknown) (unknown) glucosamine (units (un known) date) sulfate 500 mg unknown) tablet (Glucosamine) 500 mg PO DAILY 12/06/22 (unknown) (no (unknown) (unknown) have occurred. (units (unknown) date) If there are any unknown) questions, please contact the Medical Records (unknown) (no (unknown) (unknown) here for lumbar (units (unknown) date) spine unknown) (unknown) (no (unknown) (unknown) may occur. (units (unk nown) date) Occasional unknown) wrong-word or 'sound-alike' substitutions may have (unknown) (no (unknown) (unknown) multivitamin 1 (units (unknown) date) tab PO DAILY unknown) 12/06/22 [History Confirmed 12/06/22] (unknown) (no (unknown) (unknown) occurred due to (units (unknown) date) the inherent unknown) limitations of voice recognition software. Please (unknown) (no (unknown) (unknown) omega (units (unkno wn) date) 6-xus-sgb-fish unknown) oil 60 mg-90 mg-500 mg capsule (Fish Oil) 1 cap PO DAILY (unknown) (no (unknown) (unknown) read the note (units ( unknown) date) carefully and unknown) recognize, using context, where these substitutions (unknown) (no (unknown) (unknown) software. (units (unkn own) date) Although every unknown) effort is made to edit content, sweatband shaper errors (unknown) (no (unknown) (unknown) vitamin B (units (unkn own) date) complex (B unknown) Complex-Vitamin B12 tablet) 1 tab PO DAILY 12/06/22 Result panel 5 (unknown) (no (unknown) (unknown) (no value) (units (unk nown) date) unknown) (unknown) (no (unknown) (unknown) (1) History of (units (unknown) date) viral encephalitis: unknown) (unknown) (no (unknown) (unknown) (2) H/O knee (units (u nknown) date) surgery: unknown) (unknown) (no (unknown) (unknown) (3) H/O shoulder (units (unknown) date) surgery: unknown) (unknown) (no (unknown) (unknown) (4) History of hip (units (unknown) date) surgery: unknown) (unknown) (no (unknown) (unknown) (5) (units (unkno wn) date) Spondylolisthesis at unknown) L5-S1 level: (unknown) (no (unknown) (unknown) (6) Lumbar stenosis (unit s (unknown) date) with neurogenic unknown) claudication: (unknown) (no (unknown) (unknown) (7) Lumbar (units (unk nown) date) vertebral fracture: unknown) (unknown) (no (unknown) (unknown) - Unspecified (units ( unknown) date) fracture of unknown) unspecified lumbar vertebra, initial encounter for (unknown) (no (unknown) (unknown) 12/06/22 [History (units (unknown) date) Confirmed 12/06/22] unknown) (unknown) (no (unknown) (unknown) 12/06/22 (units (unkno wn) date) unknown) (unknown) (no (unknown) (unknown) 14:11 (units (unkno wn) date) unknown) (unknown) (no (unknown) (unknown) [id number] (units (unkno wn) date) unknown) (unknown) (no (unknown) (unknown) Accompanied by: (units (unknown) date) Self / Same As unknown) Patient (unknown) (no (unknown) (unknown) Age/Sex: 77 / M (units (unknown) date) Date of Service: unknown) (unknown) (no (unknown) (unknown) All other systems (units (unknown) date) reviewed and are unknown) negative except as noted in HPI. (unknown) (no (unknown) (unknown) Allergies (units (unkn own) date) unknown) (unknown) (no (unknown) (unknown) [place] [address] (unit s (unknown) date) unknown) (unknown) (no (unknown) (unknown) Assessment + Plan (units (unknown) date) unknown) (unknown) (no (unknown) (unknown) Attending Dr: (units ( unknown) date) Brandon Diallo D.O. unknown) (unknown) (no (unknown) (unknown) BMI 26.5 (units (unkno wn) date) unknown) (unknown) (no (unknown) (unknown) BP 117/68 (units (unkn own) date) unknown) (unknown) (no (unknown) (unknown) Bcomplex-C (units (unk nown) date) #13-folic acid 1 unknown) mg-vit D3 1,750 unit disintegrating tablet tab PO (unknown) (no (unknown) (unknown) Blood Pressure (units (unknown) date) Location Rt brachial unknown) (unknown) (no (unknown) (unknown) Chief Complaint (units (unknown) date) unknown) (unknown) (no (unknown) (unknown) Chief Complaint: (units (unknown) date) Low back pain by unknown) lower extremity weakness (unknown) (no (unknown) (unknown) Confirmed 12/06/22] (unit s (unknown) date) unknown) (unknown) (no (unknown) (unknown) DAILY 12/06/22 (units (unknown) date) [History Confirmed unknown) 12/06/22] (unknown) (no (unknown) (unknown) : 1945 (units (unknown) date) Acct:[id number] unknown) (unknown) (no (unknown) (unknown) Denies recent (units ( unknown) date) trauma, fever or unknown) weight loss of unknown origin, immunocompromise (unknown) (no (unknown) (unknown) Dept at (units (unkno wn) date) . unknown) (unknown) (no (unknown) (unknown) Documented By: (units (unknown) date) Brandon Diallo D.O. unknown) 12/06/22 1244 (unknown) (no (unknown) (unknown) Draft (units (unkno wn) date) unknown) (unknown) (no (unknown) (unknown) Endorses history of (units (unknown) date) right total hip unknown) arthroplasty, history of viral encephalitis, (unknown) (no (unknown) (unknown) Family History (units (unknown) date) (Reviewed 12/06/22 @ unknown) 14:36 by Brandon Diallo DO) (unknown) (no (unknown) (unknown) Father Heart attack (unit s (unknown) date) unknown) (unknown) (no (unknown) (unknown) H/O knee surgery (units (unknown) date) unknown) (unknown) (no (unknown) (unknown) H/O shoulder (units (u nknown) date) surgery unknown) (unknown) (no (unknown) (unknown) HPI (units (unkno wn) date) unknown) (unknown) (no (unknown) (unknown) Height 5 ft 6 in (units (unknown) date) unknown) (unknown) (no (unknown) (unknown) History of hip (units (unknown) date) surgery unknown) (unknown) (no (unknown) (unknown) History of viral (units (unknown) date) encephalitis unknown) (unknown) (no (unknown) (unknown) Intake Clinical (units (unknown) date) Staff unknown) (unknown) (no (unknown) (unknown) Intake Note: (units (u nknown) date) unknown) (unknown) (no (unknown) (unknown) Intake performed (units (unknown) date) by: Krystle Clark unknown) (unknown) (no (unknown) (unknown) Intake (units (unkno wn) date) unknown) (unknown) (no (unknown) (unknown) Is patient in (units ( unknown) date) pain?: Yes (HERE FOR unknown) 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) Pain scale (1-10): 5 (unknown) (no (unknown) (unknown) L5-S1 (units (unkno wn) date) spondylolisthesis, unknown) vertebral fracture, history of right reverse total (unknown) (no (unknown) (unknown) Loc: PAIN (units (unkn own) date) unknown) (unknown) (no (unknown) (unknown) Lumbar stenosis (units (unknown) date) with neurogenic unknown) claudication (unknown) (no (unknown) (unknown) Lumbar vertebral (units (unknown) date) fracture unknown) (unknown) (no (unknown) (unknown) M48.062 - Spinal (units (unknown) date) stenosis, lumbar unknown) region with neurogenic claudication, S32.009A (unknown) (no (unknown) (unknown) MR lumbar spine wo (units (unknown) date) con Today M43.17 - unknown) Spondylolisthesis, lumbosacral region, (unknown) (no (unknown) (unknown) MSK: System (units (un known) date) reviewed and no unknown) additional complaints, except as documented. (unknown) (no (unknown) (unknown) Medical History (units (unknown) date) (Reviewed 12/06/22 @ unknown) 14:36 by Brandon Diallo DO) (unknown) (no (unknown) (unknown) Medications (units (un known) date) unknown) (unknown) (no (unknown) (unknown) Medications: (units (u nknown) date) unknown) (unknown) (no (unknown) (unknown) Mother Depression (units (unknown) date) unknown) (unknown) (no (unknown) (unknown) Neuro: System (units ( unknown) date) reviewed and no unknown) additional complaints, except as documented. (unknown) (no (unknown) (unknown) New (units (unkno wn) date) unknown) (unknown) (no (unknown) (unknown) No Known Drug (units ( unknown) date) Allergies Allergy unknown) (Unverified 12/06/22 12:44) (unknown) (no (unknown) (unknown) Orders (units (unkno wn) date) unknown) (unknown) (no (unknown) (unknown) Orders: (units (unkno wn) date) unknown) (unknown) (no (unknown) (unknown) Oxygen Delivery (units (unknown) date) Method room air unknown) (unknown) (no (unknown) (unknown) PFSH (units (unkno wn) date) unknown) (unknown) (no (unknown) (unknown) Pain Scale (units (unk nown) date) unknown) (unknown) (no (unknown) (unknown) Pain Visit (units (unk nown) date) unknown) (unknown) (no (unknown) (unknown) Patient: (units (unkno wn) date) Leeroy Guillermo MR#: unknown) M000 (unknown) (no (unknown) (unknown) Position Sitting (units (unknown) date) unknown) (unknown) (no (unknown) (unknown) Pulse 68 (units (unkno wn) date) unknown) (unknown) (no (unknown) (unknown) Pulse Oximetry (%) (units (unknown) date) 99 unknown) (unknown) (no (unknown) (unknown) Pulse Source (units (u nknown) date) Monitor unknown) (unknown) (no (unknown) (unknown) ROS Narrative (units ( unknown) date) unknown) (unknown) (no (unknown) (unknown) ROS Narrative: (units (unknown) date) unknown) (unknown) (no (unknown) (unknown) ROS (units (unkno wn) date) unknown) (unknown) (no (unknown) (unknown) Reason For Visit (units (unknown) date) unknown) (unknown) (no (unknown) (unknown) Signed By: (units (unk nown) date) unknown) (unknown) (no (unknown) (unknown) Sister Depression (units (unknown) date) unknown) (unknown) (no (unknown) (unknown) Spondylolisthesis (units (unknown) date) at L5-S1 level unknown) (unknown) (no (unknown) (unknown) Status: Acute (units ( unknown) date) unknown) (unknown) (no (unknown) (unknown) Surgical History (units (unknown) date) (Reviewed 12/06/22 @ unknown) 14:36 by Brandon Dialol DO) (unknown) (no (unknown) (unknown) Temp 98.3 F (units (un known) date) unknown) (unknown) (no (unknown) (unknown) Temp Source (units (un known) date) Temporal Artery Scan unknown) (unknown) (no (unknown) (unknown) [facility] (unit s (unknown) date) Management unknown) (unknown) (no (unknown) (unknown) This note may have (units (unknown) date) been all or unknown) partially generated using voice recognition (unknown) (no (unknown) (unknown) Visit Reasons: (units (unknown) date) 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, 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) LSpine, lumbar spine (unknown) (no (unknown) (unknown) Vitals (units (unkno wn) date) unknown) (unknown) (no (unknown) (unknown) Weight 164 lb 8 oz (units (unknown) date) unknown) (unknown) (no (unknown) (unknown) [History Confirmed (units (unknown) date) 12/06/22] unknown) (unknown) (no (unknown) (unknown) alendronate 70 mg (units (unknown) date) tablet 70 mg PO unknown) QWEEK 12/06/22 [History Confirmed 12/06/22] (unknown) (no (unknown) (unknown) allopurinol 100 mg (units (unknown) date) tablet 100 mg PO unknown) DAILY 12/06/22 [History Confirmed 12/06/22] (unknown) (no (unknown) (unknown) amlodipine 10 mg (units (unknown) date) tablet 10 mg PO unknown) DAILY 12/06/22 [History Confirmed 12/06/22] (unknown) (no (unknown) (unknown) amoxicillin 500 mg (units (unknown) date) tablet 2,000 mg PO unknown) ONCE 12/06/22 [History Confirmed 12/06/22] (unknown) (no (unknown) (unknown) atenolol 100 mg (units (unknown) date) tablet 50 mg PO unknown) DAILY 12/06/22 [History Confirmed 12/06/22] (unknown) (no (unknown) (unknown) atorvastatin 40 mg (units (unknown) date) tablet 40 mg PO unknown) BEDTIME 12/06/22 [History Confirmed 12/06/22] (unknown) (no (unknown) (unknown) calcium 600 mg-FA 1 (unit s (unknown) date) mg-B-D3 500 unit-E unknown) 30 nyzd-gxqzfvu-tzh xtr capsule 1 cap PO (unknown) (no (unknown) (unknown) celecoxib (units (unkn own) date) (Celebrex) 200 mg PO unknown) DAILY 30 caps 2RF (unknown) (no (unknown) (unknown) celecoxib 200 mg (units (unknown) date) capsule (Celebrex) unknown) 200 mg PO DAILY #30 caps 12/06/22 [Rx (unknown) (no (unknown) (unknown) closed fracture (units (unknown) date) unknown) (unknown) (no (unknown) (unknown) glucosamine sulfate (unit s (unknown) date) 500 mg tablet unknown) (Glucosamine) 500 mg PO DAILY 12/06/22 (unknown) (no (unknown) (unknown) have occurred. If (units (unknown) date) there are any unknown) questions, please contact the Medical Records (unknown) (no (unknown) (unknown) here for lumbar (units (unknown) date) spine unknown) (unknown) (no (unknown) (unknown) intravenous drug (units (unknown) date) use, sustained unknown) glucocorticoid use, osteoporosis, or a focal (unknown) (no (unknown) (unknown) may occur. (units (unk nown) date) Occasional unknown) wrong-word or 'sound-alike' substitutions may have (unknown) (no (unknown) (unknown) multivitamin 1 tab (units (unknown) date) PO DAILY 12/06/22 unknown) [History Confirmed 12/06/22] (unknown) (no (unknown) (unknown) neurological (units (u nknown) date) deficit with unknown) progressive or disabling symptoms. (unknown) (no (unknown) (unknown) occurred due to the (unit s (unknown) date) inherent limitations unknown) of voice recognition software. Please (unknown) (no (unknown) (unknown) omega (units (unkno wn) date) 9-ihz-jhl-fish oil unknown) 60 mg-90 mg-500 mg capsule (Fish Oil) 1 cap PO DAILY (unknown) (no (unknown) (unknown) or (units (unkno wn) date) immunosuppressive unknown) therapy, previous or current cancer diagnosis, history of (unknown) (no (unknown) (unknown) read the note (units ( unknown) date) carefully and unknown) recognize, using context, where these substitutions (unknown) (no (unknown) (unknown) shoulder, left (units (unknown) date) total knee unknown) arthroplasty (unknown) (no (unknown) (unknown) software. Although (units (unknown) date) every effort is made unknown) to edit content, sweatband shaper errors (unknown) (no (unknown) (unknown) vitamin B complex (units (unknown) date) (B Complex-Vitamin unknown) B12 tablet) 1 tab PO DAILY 12/06/22 Result panel 6 (unknown) (no (unknown) (unknown) (no value) (units (unk nown) date) unknown) (unknown) (no (unknown) (unknown) (1) History of (units (unknown) date) viral encephalitis: unknown) (unknown) (no (unknown) (unknown) (2) H/O knee (units (u nknown) date) surgery: unknown) (unknown) (no (unknown) (unknown) (3) H/O shoulder (units (unknown) date) surgery: unknown) (unknown) (no (unknown) (unknown) (4) History of hip (units (unknown) date) surgery: unknown) (unknown) (no (unknown) (unknown) (5) (units (unkno wn) date) Spondylolisthesis at unknown) L5-S1 level: (unknown) (no (unknown) (unknown) (6) Lumbar stenosis (unit s (unknown) date) with neurogenic unknown) claudication: (unknown) (no (unknown) (unknown) (7) Lumbar (units (unk nown) date) vertebral fracture: unknown) (unknown) (no (unknown) (unknown) - Unspecified (units ( unknown) date) fracture of unknown) unspecified lumbar vertebra, initial encounter for (unknown) (no (unknown) (unknown) 12/06/22 1442 (units ( unknown) date) unknown) (unknown) (no (unknown) (unknown) 12/06/22 [History (units (unknown) date) Confirmed 12/06/22] unknown) (unknown) (no (unknown) (unknown) 12/06/22 (units (unkno wn) date) unknown) (unknown) (no (unknown) (unknown) 14:11 (units (unkno wn) date) unknown) (unknown) (no (unknown) (unknown) [id number] (units (unkno wn) date) unknown) (unknown) (no (unknown) (unknown) Accompanied by: (units (unknown) date) Self / Same As unknown) Patient (unknown) (no (unknown) (unknown) Age/Sex: 77 / M (units (unknown) date) Date of Service: unknown) (unknown) (no (unknown) (unknown) All of his (units (unk nown) date) questions were unknown) answered to the best my ability would like to follow (unknown) (no (unknown) (unknown) All other systems (units (unknown) date) reviewed and are unknown) negative except as noted in HPI. (unknown) (no (unknown) (unknown) Allergies (units (unkn own) date) unknown) (unknown) (no (unknown) (unknown) [place], [place] [id number] (unit s (unknown) date) unknown) (unknown) (no (unknown) (unknown) Assessment + Plan (units (unknown) date) unknown) (unknown) (no (unknown) (unknown) Attending Dr: (units ( unknown) date) Brandon Diallo D.O. unknown) (unknown) (no (unknown) (unknown) BMI 26.5 (units (unkno wn) date) unknown) (unknown) (no (unknown) (unknown) BP 117/68 (units (unkn own) date) unknown) (unknown) (no (unknown) (unknown) Babinski (R/L): - / (unit s (unknown) date) unknown) (unknown) (no (unknown) (unknown) Bcomplex-C (units (unk nown) date) #13-folic acid 1 unknown) mg-vit D3 1,750 unit disintegrating tablet tab PO (unknown) (no (unknown) (unknown) Blood Pressure (units (unknown) date) Location Rt brachial unknown) (unknown) (no (unknown) (unknown) Chief Complaint (units (unknown) date) unknown) (unknown) (no (unknown) (unknown) Chief Complaint: (units (unknown) date) Low back pain by unknown) lower extremity weakness (unknown) (no (unknown) (unknown) Clonus (R/L): - / (units (unknown) date) unknown) (unknown) (no (unknown) (unknown) Confirmed 12/06/22] (unit s (unknown) date) unknown) (unknown) (no (unknown) (unknown) DAILY 12/06/22 (units (unknown) date) [History Confirmed unknown) 12/06/22] (unknown) (no (unknown) (unknown) : 1945 (units (unknown) date) Acct:[id number] unknown) (unknown) (no (unknown) (unknown) DTR LE: Patellar (units (unknown) date) (0+/2+); Achilles unknown) (1+/2+) (unknown) (no (unknown) (unknown) Denies recent (units ( unknown) date) trauma, fever or unknown) weight loss of unknown origin, immunocompromise (unknown) (no (unknown) (unknown) Dept at (units (unkno wn) date) . unknown) (unknown) (no (unknown) (unknown) Details: (units (unkno wn) date) unknown) (unknown) (no (unknown) (unknown) Documented By: (units (unknown) date) Brandon Diallo D.O. unknown) 12/06/22 1244 (unknown) (no (unknown) (unknown) Dorsalis pedis (units (unknown) date) (R/L): 2+ / 2 unknown) (unknown) (no (unknown) (unknown) Encounter type: (units (unknown) date) sequela Lumbar unknown) vertebra fracture level: unspecified (unknown) (no (unknown) (unknown) Endorses: history (units (unknown) date) of gastric bypass, unknown) history of right total hip arthroplasty, (unknown) (no (unknown) (unknown) Exam Narrative (units (unknown) date) unknown) (unknown) (no (unknown) (unknown) Exam Narrative: (units (unknown) date) unknown) (unknown) (no (unknown) (unknown) Exam (units (unkno wn) date) unknown) (unknown) (no (unknown) (unknown) Extension: 30 (units ( unknown) date) unknown) (unknown) (no (unknown) (unknown) Family History (units (unknown) date) (Reviewed 12/06/22 @ unknown) 14:36 by Brandon Diallo DO) (unknown) (no (unknown) (unknown) Father Heart attack (unit s (unknown) date) unknown) (unknown) (no (unknown) (unknown) Flexion: 90 (units (un known) date) unknown) (unknown) (no (unknown) (unknown) Gait: foot drop (units (unknown) date) Coordination: normal unknown) (unknown) (no (unknown) (unknown) General Appearance: (unit s (unknown) date) Well-nourished, well unknown) developed in no acute distress (unknown) (no (unknown) (unknown) H/O knee surgery (units (unknown) date) unknown) (unknown) (no (unknown) (unknown) H/O shoulder (units (u nknown) date) surgery unknown) (unknown) (no (unknown) (unknown) HPI (units (unkno wn) date) unknown) (unknown) (no (unknown) (unknown) He reports (units (unk nown) date) otherwise feeling unknown) well maintain the Covid19 social restrictions (unknown) (no (unknown) (unknown) Height 5 ft 6 in (units (unknown) date) unknown) (unknown) (no (unknown) (unknown) Hip Adduction (units ( unknown) date) (R/L): 15? / 15? Hip unknown) Abduction (R/L): 40? / 40? (unknown) (no (unknown) (unknown) Hip Exam (units (unkno wn) date) (Bilateral) unknown) (unknown) (no (unknown) (unknown) Hip Flexion (R/L): (units (unknown) date) 120? / 120? Hip unknown) Extension (R/L): 20? / 20? (unknown) (no (unknown) (unknown) Hip IR (R/L): 5? / (units (unknown) date) 5? Hip ER (R/L): 30? unknown) / 30? (unknown) (no (unknown) (unknown) History of hip (units (unknown) date) surgery unknown) (unknown) (no (unknown) (unknown) History of viral (units (unknown) date) encephalitis unknown) (unknown) (no (unknown) (unknown) Inspection / (units (u nknown) date) Palpation LE (R/L): unknown) non-tender bilaterally (unknown) (no (unknown) (unknown) Intake Clinical (units (unknown) date) Staff unknown) (unknown) (no (unknown) (unknown) Intake Note: (units (u nknown) date) unknown) (unknown) (no (unknown) (unknown) Intake performed (units (unknown) date) by: Krystle Clark unknown) (unknown) (no (unknown) (unknown) Intake (units (unkno wn) date) unknown) (unknown) (no (unknown) (unknown) Is patient in (units ( unknown) date) pain?: Yes (HERE FOR unknown) 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) Pain scale (1-10): 5 (unknown) (no (unknown) (unknown) L2 (iliopsoas / mid (unit s (unknown) date) anterior thigh unknown) sensation)= 5/5 : normal (unknown) (no (unknown) (unknown) L3 (quadriceps / (units (unknown) date) distal anterior unknown) thigh sensation)= 5/5 : normal (unknown) (no (unknown) (unknown) L4 (tibialis (units (u nknown) date) anterior / patellar unknown) reflex / medial ankle sensation)= 3+/5 : 0+ : (unknown) (no (unknown) (unknown) L5 (EHL / dorsal (units (unknown) date) foot sensation)= unknown) 3+/5 : abnormal (unknown) (no (unknown) (unknown) LE Skin: no rashes (units (unknown) date) or lesions unknown) bilaterally (unknown) (no (unknown) (unknown) Lateral Bend(R/L): (units (unknown) date) 20 /30 unknown) (unknown) (no (unknown) (unknown) Loc: PAIN (units (unkn own) date) unknown) (unknown) (no (unknown) (unknown) Lumbar Spine Exam (units (unknown) date) unknown) (unknown) (no (unknown) (unknown) Lumbar stenosis (units (unknown) date) with neurogenic unknown) claudication (unknown) (no (unknown) (unknown) Lumbar vertebral (units (unknown) date) fracture unknown) (unknown) (no (unknown) (unknown) Lymph LE: no (units (u nknown) date) inguinal unknown) lymphadenopathy (unknown) (no (unknown) (unknown) M48.062 - Spinal (units (unknown) date) stenosis, lumbar unknown) region with neurogenic claudication, S32.009A (unknown) (no (unknown) (unknown) MR lumbar spine wo (units (unknown) date) con Today M43.17 - unknown) Spondylolisthesis, lumbosacral region, (unknown) (no (unknown) (unknown) MSK: System (units (un known) date) reviewed and no unknown) additional complaints, except as documented. (unknown) (no (unknown) (unknown) Medical History (units (unknown) date) (Reviewed 12/06/22 @ unknown) 14:36 by Brandon Diallo DO) (unknown) (no (unknown) (unknown) Medications (units (un known) date) unknown) (unknown) (no (unknown) (unknown) Medications: (units (u nknown) date) unknown) (unknown) (no (unknown) (unknown) Mother Depression (units (unknown) date) unknown) (unknown) (no (unknown) (unknown) Neuro: System (units ( unknown) date) reviewed and no unknown) additional complaints, except as documented. (unknown) (no (unknown) (unknown) New (units (unkno wn) date) unknown) (unknown) (no (unknown) (unknown) No Known Drug (units ( unknown) date) Allergies Allergy unknown) (Unverified 12/06/22 12:44) (unknown) (no (unknown) (unknown) No quad tightness (units (unknown) date) unknown) (unknown) (no (unknown) (unknown) Orders (units (unkno wn) date) unknown) (unknown) (no (unknown) (unknown) Orders: (units (unkno wn) date) unknown) (unknown) (no (unknown) (unknown) Orientation: (units (u nknown) date) Oriented to person, unknown) place and time. Mood / Affect: Calm (unknown) (no (unknown) (unknown) Oxygen Delivery (units (unknown) date) Method room air unknown) (unknown) (no (unknown) (unknown) PFSH (units (unkno wn) date) unknown) (unknown) (no (unknown) (unknown) Pain Scale (units (unk nown) date) unknown) (unknown) (no (unknown) (unknown) Pain Visit (units (unk nown) date) unknown) (unknown) (no (unknown) (unknown) Patient: (units (unkno wn) date) Leeroy Guillermo MR#: unknown) M000 (unknown) (no (unknown) (unknown) Plan (units (unkno wn) date) unknown) (unknown) (no (unknown) (unknown) Position Sitting (units (unknown) date) unknown) (unknown) (no (unknown) (unknown) Pulse 68 (units (unkno wn) date) unknown) (unknown) (no (unknown) (unknown) Pulse Oximetry (%) (units (unknown) date) 99 unknown) (unknown) (no (unknown) (unknown) Pulse Source (units (u nknown) date) Monitor unknown) (unknown) (no (unknown) (unknown) Qualified Code(s): (units (unknown) date) S32.000S - Wedge unknown) compression fracture of unspecified lumbar (unknown) (no (unknown) (unknown) Qualifiers: (units (un known) date) unknown) (unknown) (no (unknown) (unknown) ROS Narrative (units ( unknown) date) unknown) (unknown) (no (unknown) (unknown) ROS Narrative: (units (unknown) date) unknown) (unknown) (no (unknown) (unknown) ROS (units (unkno wn) date) unknown) (unknown) (no (unknown) (unknown) Reason For Visit (units (unknown) date) unknown) (unknown) (no (unknown) (unknown) Davian and I discussed (unit s (unknown) date) at length his unknown) underlying pathology we did discuss his (unknown) (no (unknown) (unknown) Davian presents today (units (unknown) date) for further unknown) evaluation treatment of multiple musculoskeletal (unknown) (no (unknown) (unknown) Rotation (R/L): 25 (units (unknown) date) / 45 unknown) (unknown) (no (unknown) (unknown) S1 (Peroneals / (units (unknown) date) Achilles reflex / unknown) lateral ankle sensation)= 5/5 : 1+ : abnormal (unknown) (no (unknown) (unknown) Seated SLR(R/L): + (units (unknown) date) / unknown) (unknown) (no (unknown) (unknown) Sensation: (units (unk nown) date) Subjective normal unknown) distal sensation bilaterally (unknown) (no (unknown) (unknown) Signed By: (units (unk nown) date) <Electronically unknown) signed by Brandon Diallo D.O.> (unknown) (no (unknown) (unknown) Signed (units (unkno wn) date) unknown) (unknown) (no (unknown) (unknown) Sister Depression (units (unknown) date) unknown) (unknown) (no (unknown) (unknown) Spondylolisthesis (units (unknown) date) at L5-S1 level unknown) (unknown) (no (unknown) (unknown) Status: Acute (units ( unknown) date) unknown) (unknown) (no (unknown) (unknown) Strength LE: 3+/5 (units (unknown) date) EHL, tibialis unknown) anterior, plantar flexion bilaterally (unknown) (no (unknown) (unknown) Supine SLR (R/L): - (unit s (unknown) date) / unknown) (unknown) (no (unknown) (unknown) Surgical History (units (unknown) date) (Reviewed 12/06/22 @ unknown) 14:36 by Brandon Diallo DO) (unknown) (no (unknown) (unknown) Temp 98.3 F (units (un known) date) unknown) (unknown) (no (unknown) (unknown) Temp Source (units (un known) date) Temporal Artery Scan unknown) (unknown) (no (unknown) (unknown) Tenderness: LS jxn (units (unknown) date) worse with extension unknown) loading (unknown) (no (unknown) (unknown) [facility] (unit s (unknown) date) Management unknown) (unknown) (no (unknown) (unknown) This note may have (units (unknown) date) been all or unknown) partially generated using voice recognition (unknown) (no (unknown) (unknown) Vasculature: 2+ (units (unknown) date) dorsalis pedis pulse unknown) bilaterally (unknown) (no (unknown) (unknown) Visit Reasons: (units (unknown) date) 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, 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 unknown) (unknown) (no (unknown) (unknown) alendronate 70 mg (units (unknown) date) tablet 70 mg PO unknown) QWEEK 12/06/22 [History Confirmed 12/06/22] (unknown) (no (unknown) (unknown) allopurinol 100 mg (units (unknown) date) tablet 100 mg PO unknown) DAILY 12/06/22 [History Confirmed 12/06/22] (unknown) (no (unknown) (unknown) also like to (units (un known) date) initiate a trial unknown) with Celebrex 200 mg capsules 1 capsule p.o. q.day (unknown) (no (unknown) (unknown) amlodipine 10 mg (units (unknown) date) tablet 10 mg PO unknown) DAILY 12/06/22 [History Confirmed 12/06/22] (unknown) (no (unknown) (unknown) amoxicillin 500 mg (units (unknown) date) tablet 2,000 mg PO unknown) ONCE 12/06/22 [History Confirmed 12/06/22] (unknown) (no (unknown) (unknown) as evidence of (units (unknown) date) previous vertebral unknown) fractures. I do believe the further (unknown) (no (unknown) (unknown) as his lower (units (u nknown) date) extremities. He unknown) reports not using any medications for this at (unknown) (no (unknown) (unknown) atenolol 100 mg (units (unknown) date) tablet 50 mg PO unknown) DAILY 12/06/22 [History Confirmed 12/06/22] (unknown) (no (unknown) (unknown) atorvastatin 40 mg (units (unknown) date) tablet 40 mg PO unknown) BEDTIME 12/06/22 [History Confirmed 12/06/22] (unknown) (no (unknown) (unknown) ay occur. (units (unkn own) date) Occasional unknown) wrong-word or 'sound-alike' substitutions may have (unknown) (no (unknown) (unknown) calcium 600 mg-FA 1 (unit s (unknown) date) mg-B-D3 500 unit-E unknown) 30 noqh-quohncq-jll xtr capsule 1 cap PO (unknown) (no (unknown) (unknown) celecoxib (units (unkn own) date) (Celebrex) 200 mg PO unknown) DAILY 30 caps 2RF (unknown) (no (unknown) (unknown) celecoxib 200 mg (units (unknown) date) capsule (Celebrex) unknown) 200 mg PO DAILY #30 caps 12/06/22 [Rx (unknown) (no (unknown) (unknown) closed fracture (units (unknown) date) unknown) (unknown) (no (unknown) (unknown) complaints. He (units (unknown) date) reports difficulty unknown) with low back pain this been marked for 30 (unknown) (no (unknown) (unknown) glucosamine sulfate (unit s (unknown) date) 500 mg tablet unknown) (Glucosamine) 500 mg PO DAILY 12/06/22 (unknown) (no (unknown) (unknown) have occurred. If (units (unknown) date) there are any unknown) questions, please contact the Medical Records (unknown) (no (unknown) (unknown) here for lumbar (units (unknown) date) spine unknown) (unknown) (no (unknown) (unknown) history of right (units (unknown) date) reverse total unknown) shoulder, left total knee arthroplasty (unknown) (no (unknown) (unknown) history of viral (units (unknown) date) encephalitis, L5-S1 unknown) spondylolisthesis, vertebral fracture, (unknown) (no (unknown) (unknown) intravenous drug (units (unknown) date) use, sustained unknown) glucocorticoid use, osteoporosis, or a focal (unknown) (no (unknown) (unknown) lumbar vertebra (units (unknown) date) Fracture morphology: unknown) wedge compression Fracture type: closed (unknown) (no (unknown) (unknown) multilevel (units (unk nown) date) lumbosacral unknown) spondylosis with grade 1 slip at the L5-S1 level as well (unknown) (no (unknown) (unknown) multivitamin 1 tab (units (unknown) date) PO DAILY 12/06/22 unknown) [History Confirmed 12/06/22] (unknown) (no (unknown) (unknown) need of any pre (units (unknown) date) sedation for the unknown) above-stated study. In the meantime I would (unknown) (no (unknown) (unknown) neurological (units (u nknown) date) deficit with unknown) progressive or disabling symptoms. (unknown) (no (unknown) (unknown) occurred due to the (unit s (unknown) date) inherent limitations unknown) of voice recognition software. Please (unknown) (no (unknown) (unknown) omega (units (unkno wn) date) 5-ffs-uju-fish oil unknown) 60 mg-90 mg-500 mg capsule (Fish Oil) 1 cap PO DAILY (unknown) (no (unknown) (unknown) ongoing (units (unkno wn) date) difficulties and unknown) difficulty sleeping secondary to the above-stated (unknown) (no (unknown) (unknown) or (units (unkno wn) date) immunosuppressive unknown) therapy, previous or current cancer diagnosis, history of (unknown) (no (unknown) (unknown) overreaction (units (u nknown) date) unknown) (unknown) (no (unknown) (unknown) present nor having (units (unknown) date) any previous unknown) radiographic data prior to today's visit. (unknown) (no (unknown) (unknown) radiographic data is (unit s (unknown) date) necessary nor to unknown) clearly determine the underlying pathology (unknown) (no (unknown) (unknown) read the note (units ( unknown) date) carefully and unknown) recognize, using context, where these substitutions (unknown) (no (unknown) (unknown) software. Although (units (unknown) date) every effort is made unknown) to edit content, sweatband shaper errors m (unknown) (no (unknown) (unknown) subsequently led to (units (unknown) date) seizure and unknown) subsequent difficulty with both low back pain as (unknown) (no (unknown) (unknown) symptomatology. He (units (unknown) date) does walk with a 1.8 unknown) cane secondary to his low back as well (unknown) (no (unknown) (unknown) that may be (units (un known) date) amenable to unknown) interventional treatments. Subsequently will proceed (unknown) (no (unknown) (unknown) to significant (units (unknown) date) offset some of unknown) symptoms in a non interventional fashion. (unknown) (no (unknown) (unknown) up with him after (units (unknown) date) the above-stated unknown) radiographic data is obtained, he is in (unknown) (no (unknown) (unknown) vertebra, sequela (units (unknown) date) unknown) (unknown) (no (unknown) (unknown) vitamin B complex (units (unknown) date) (B Complex-Vitamin unknown) B12 tablet) 1 tab PO DAILY 12/06/22 (unknown) (no (unknown) (unknown) well as hip and (units (unknown) date) knee pain. He has unknown) undergone a left total knee arthroplasty as (unknown) (no (unknown) (unknown) well as right total (unit s (unknown) date) hip arthroplasty and unknown) a right total shoulder. He reports (unknown) (no (unknown) (unknown) with an MRI at this (unit s (unknown) date) time. He reports he unknown) is not claustrophobic and therefore not (unknown) (no (unknown) (unknown) without cough fever (unit s (unknown) date) fatigue at this unknown) time. He has been fully vaccinated. (unknown) (no (unknown) (unknown) years. 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
[2022-12-13 19:12] VITALS: BP 164/100
--- NOTE | 2022-12-13 19:19 | Ultrasound Report ---
PROCEDURE: Duplex Ext Veins Left INDICATIONS: Left bicep area swelling (suspect hematoma) TECHNIQUE: Real-time imaging, as well as color and pulse Doppler interrogation, were performed of the lower extr emity deep veins from the inguinal ligament to the popliteal fossa. COMPARISON: None. FINDINGS: The deep veins are normally compressible, and free of intraluminal thrombus. Color and pu lse Doppler demonstrate normal phasic intraluminal flow. There is normal augmentation response to di stal compression maneuver. There is a heterogeneous, nonvascular fluid collection noted in the region of the tendon tendon. Anterior to the left shoulder, there is a 3.2 x 1.9 x 3.3 cm fluid collection near the shoulder joint . IMPRESSION: 1. No evidence for deep venous thrombosis of the left upper extremity. 2. Possible intramuscular hematoma of the left biceps versus partial muscle tear. 3. Nonspecific anterior left shoulder fluid collection which may represent a joint effusion. Reviewed by: Jim Canales MD on 12/13/2022 7:18 PM PST Approved by: Jim Canales MD on 12/13/2022 7:18 PM PST Station ID: [id number]
== END 2022-12-13 19:39 | disposition home or self-care (01) ==
LOC: EDUNIT# → EDBD → ED 17:13
DX: S40.022A Contusion of left upper arm, initial encounter (principal); X58.XXXA Exposure to other specified factors, initial encounter
CPT/HCPCS: 99282; 99284

== ENCOUNTER 2023-01-30 15:36 | Observation (INO) | payer MEDICARE ==
--- NOTE | 2023-01-30 16:02 | ED Physician Documentation ---
History of Present Illness - Stated complaint Stated Complaint: STOMACH PX - Chief complaint Chief Complaint: Abd Pain - Additonal information Additional information: 77-year-old male presents emergency department for evaluation of lower abdominal discomfort that he states has been present constantly now for at least a few months. He is denying changes in bowel habits. No melena or hematochezia. No urinary symptoms. No fevers flank pain or vomiting. No pertinent past surgical history. Patient reports that he got curious about the belly pain today so he called the nurse advice line who advised him to come to the ER. He denies night sweats or weight loss. No chest pain or shortness of air. He is not anticoagulated. Patient denies any previous colonoscopies. Patient states he had a gastric bypass when he turned 64. Patient is a fair historian Review of Systems Constitutional: denies: Fever, Chills, Myalgias, Fatigue Eyes: reports: Reviewed and negative Ears: reports: Reviewed and negative Cardiac: reports: Reviewed and negative Respiratory: reports: Reviewed and negative GI: reports: Abdominal Pain. denies: Nausea, Vomiting, Constipation, Diarrhea, Hematemesis : reports: Reviewed and negative Skin: reports: Reviewed and negative PD PAST MEDICAL HISTORY - Past Medical History Cardiovascular: Hypertension, High cholesterol, Other Musculoskeletal: Gout - Past Surgical History Past Surgical History: Yes General: Gastric surgery Ortho: Hip replacement, Knee replacement, Other Cardiovascular: Coronary stent HEENT: Tonsil/Adenoidectomy - Present Medications Home Medications: Ambulatory Orders Medication Instructions Recorded Confirmed Atorvastatin [Lipitor] 10 mg PO DAILY 09/22/18 07/31/19 allopurinoL [Allopurinol] 1 tab PO DAILY 09/22/18 07/31/19 amLODIPine [Norvasc] 5 mg PO DAILY 09/22/18 07/31/19 oxyCODONE [Roxicodone] 5 mg PO Q4-6H #20 tablet 09/22/18 07/31/19 - Allergies Allergies/Adverse Reactions: Allergies Allergy/AdvReac Type Severity Reaction Status Date / Time oxycodone [From OxyContin] Allergy Itching Verified 01/30/23 15:47 - Social History Does the pt smoke?: No Smoking Status: Never smoker Does the pt drink ETOH?: Yes Does the pt have substance abuse?: No - Immunizations Immunizations are current?: Yes - POLST Patient has POLST: No PD ED PE NORMAL - General General: Alert and oriented X 3, No acute distress, Well developed/nourished - HEENT HEENT: Atraumatic, Moist mucous membranes - Neck Neck: Supple, no meningeal sign, No adenopathy - Cardiac Cardiac: RRR, No murmur - Respiratory Respiratory: No respiratory distress, Clear bilaterally - Abdomen Abdomen: Normal bowel sounds, Soft. No: Non tender (Mild tenderness elicited with palpation of the lower abdomen without guarding or rebound. Nonperitoneal.) - Back Back: No CVA TTP, No spinal TTP - Derm Derm: Normal color, Warm and dry, No rash - Extremities Extremities: No deformity, No tenderness to palpate, Normal ROM s pain - Neuro Neuro: Alert and oriented X 3 Eye Opening: Spontaneous Motor: Obeys Commands Verbal: Oriented GCS Score: 15 Results - Vitals Vitals: Vital Signs - 24 hr 01/30/23 01/30/23 01/30/23 15:42 15:58 16:53 Temperature 36.1 C L Heart Rate 63 65 Respiratory 24 17 16 Rate Blood Pressure 133/73 H 162/81 H O2 Saturation 97 100 Oxygen O2 Source Room air - Labs Labs: Laboratory Tests 01/30/23 01/30/23 01/30/23 16:03 16:03 16:03 WBC 33.4 H RBC 4.55 L Hgb 12.4 L Hct 39.2 L MCV 86.2 MCH 27.3 MCHC 31.6 L RDW 15.9 H Plt Count 467 H MPV 8.7 Neut # (Auto) Not Reportable Lymph # (Auto) Not Reportable Collier # (Auto) Not Reportable Eos # (Auto) Not Reportable Baso # (Auto) Not Reportable Absolute Nucleated RBC Not Reportable Total Counted 100 Band Neuts % (Manual) 1 Reactive Lymphs % (Man) 1 Abnorm Lymph % (Manual) 0 Nucleated RBC % Not Reportable Neutrophils # (Manual) 28.1 H Lymphocytes # (Manual) 2.3 Monocytes # (Manual) 3.0 H Eosinophils # (Manual) 0.0 Basophils # (Manual) 0.0 Differential Comment MANUAL DIFFERENTIAL Platelet Estimate INCREASED (>450,000) Platelet Morphology NORMAL APPEARANCE RBC Morph Micro Appear NORMAL APPEARANCE Sodium 137 Potassium 4.2 Chloride 97 L Carbon Dioxide 27 Anion Gap 13.0 BUN 32 H Creatinine 1.3 H Estimated GFR (MDRD) 53 L Glucose 128 H Calcium 10.4 H Total Bilirubin 0.9 AST 30 ALT 15 Alkaline Phosphatase 57 Total Protein 8.0 Albumin 3.7 Globulin 4.3 H Albumin/Globulin Ratio 0.9 L Lipase 25 Urine Color DARK YELLOW Urine Clarity HAZY Urine pH 5.0 Ur Specific [place] >=1.030 H Urine Protein 30 H Urine Glucose (UA) NEGATIVE Urine Ketones 15 H Urine Occult Blood NEGATIVE Urine Nitrite NEGATIVE Urine Bilirubin NEGATIVE Urine Urobilinogen 0.2 (NORMAL) Ur Leukocyte Esterase NEGATIVE Urine RBC 0-5 Urine WBC 0-3 Ur Squamous Epith Cells NONE SEEN Urine Bacteria Rare Urine Casts 0-2 Hyaline Casts Urine Mucus Few Strands Ur Microscopic Review INDICATED Urine Culture Comments NOT INDICATED - Rads (name of study) abd CT Radiology: Prelim report reviewed (Moderate mid to distal small bowel obstruction with zone of transition in the mid abdomen likely secondary to adhesion. Postsurgical changes in anterior abdominal wall with likely seroma involving the anterior pelvic wall. NOT Consistent with abscess), See rad report PD Medical Decision Making - ED course Complexity details: reviewed results, considered differential, d/w patient Reviewed Lab Results: 77-year-old male presents to the emergency department for evaluation of many months lower abdominal discomfort. Patient thinks he may have had symptoms for up to a year. He does have a history of previous gastric bypass. He became worried enough about the symptoms today that he called the nurse advice line who told him to come to the ER. Here in the emergency department he has a CBC that shows fairly elevated leukocytosis with white count of 33,000. Mild anemia is noted. No worrisome electrolyte abnormalities though he may be mildly dehydrated with a BUN of 23 and a creatinine of 1.3. He was given a liter of IV fluid here in the ER. Subsequently CT of the abdomen shows a mid to distal small bowel obstruction with zone in the mid abdomen likely secondary to adhesion. There is also a fairly large seroma in the lower anterior pelvic wall. This is the site of pain for the patient. I discussed this case with on-call surgeon Dr. Duran. He request the patient be admitted to the hospital medically and he will surgically consult. Given the lack of vomiting he does not feel the patient needs a NG tube. further care to be dictated by the hospitalist team Departure - Departure Disposition: [facility] DC/Xfer Clinical Impression: Small bowel obstruction, History of gastric bypass Abdominal wall seroma Qualifiers: Encounter type: initial encounter Qualified Code(s): S30.1XXA - Contusion of abdominal wall, initial encounter Leukocytosis Qualifiers: Leukocytosis type: unspecified Qualified Code(s): D72.829 - Elevated white blood cell count, unspecified Discharge Date/Time: 01/30/23 18:50
--- OUTSIDE RECORDS SUMMARY | 2023-01-30 16:07 | EXTERNAL MEDICAL SUMMARY RPT | Continuity of Care Document ---
:1945 Author Organization [place] Address [address] [place] [address] Phone Care Team Providers Name Role Phone Loni Justin Unavailable Unavailable Allergies No information. Encounters No information. Functional Status No information. Immunizations No information. Medications date description facility 2022-12-06 00:[address] [facility] 2022-12-06 00:[address] [facility] 2022-12-06 00:[address] [facility] 2022-12-06 00:[address] [facility] 2022-12-06 00:[address] [facility] 2022-12-06 00:[address] [facility] 2022-12-06 00:[address] [facility] 2022-12-06 00:[address] 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 2022-12-06 00:00 History of viral encephalitis [facility] 2022-12-06 00:00 History of knee surgery [facility] 2022-12-06 00:00 History of operative procedure on hip [facility] 2022-12-06 00:00 History of shoulder surgery [facility] 2022-12-06 11:56 Dorsalgia, unspecified [facility] 2022-12-07 13:29 Dorsalgia, unspecified [facility] 2022-12-11 13:[address], [address] [facility] 2023-01-14 12:49 Spondylolisthesis, lumbosacral region [facility] 2023-01-14 12:49 Spinal stenosis, lumbar region with beryl rogenic [facility] claudication 2023-01-14 12:49 Unspecified fracture of unspecified lum bar [facility] vertebra, initial Procedures date description facility 2022-12-06 00:00 XR lumbar spine, 4+ views [facility] Results/Labs test date author facility value unit interpret ation Result panel 1 (unknown) (no (unknown) (unknown) (no value) (units (unk nown) date) unknown) (unknown) (no (unknown) (unknown) 12/06/22 (units (unkno wn) date) unknown) (unknown) (no (unknown) (unknown) [id number] (units (unkno wn) date) unknown) (unknown) (no (unknown) (unknown) [address] [place] [address] (units (unknown) date) unknown) (unknown) (no (unknown) (unknown) Accession Number: (units (unknown) date) [id number] unknown) (unknown) (no (unknown) (unknown) Age/Sex: 77 / M (units (unknown) date) Date of Service: unknown) (unknown) (no (unknown) (unknown) [place] [address] (unit s (unknown) date) unknown) (unknown) (no (unknown) (unknown) Approved by: Pedro Pablo Gregoriounits (unknown) date) Kamron Lou on unknown) 12/06/2022 at 16:22 (unknown) (no (unknown) (unknown) Bones: Bilateral (units (unknown) date) 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 (units (unknown) date) unknown) (unknown) (no (unknown) (unknown) : 1945 (units (unknown) date) Acct:[id number] unknown) (unknown) (no (unknown) (unknown) Disc space [...] in good position. (unknown) (no (unknown) (unknown) [facility] (units (unknown) date) unknown) (unknown) (no (unknown) [...] (unknown) (unknown) Patient: (units (unkno wn) date) Edi Bennett MR#: unknown) M00 (unknown) (no (unknown) (unknown) [...] wn) date) unknown) (unknown) (no (unknown) (unknown) [id number] (units (unkno wn) date) unknown) (unknown) (no (unknown) (unknown) Accompanied by: (units (unknown) date) Self / Same As unknown) Patient (unknown) (no (unknown) (unknown) Age/Sex: 77 / M (units (unknown) date) Date of Service: unknown) (unknown) (no (unknown) (unknown) Allergies (units (unkn own) date) unknown) (unknown) (no (unknown) (unknown) [place], [place] (units ( unknown) date) [id number] unknown) (unknown) (no (unknown) (unknown) Attending Dr: (units ( unknown) date) Brandon Diallo unknown) D.O. 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 (units (unkn own) date) Although every unknown) effort is made to edit content, delivery driver errors (unknown) (no (unknown) (unknown) vitamin B (units (unkn own) date) complex (B unknown) Complex-Vitamin B12 tablet) 1 tab PO DAILY 12/06/22 Result panel 3 (unknown) (no (unknown) (unknown) (no value) (units (unk nown) date) unknown) (unknown) (no (unknown) (unknown) 12/06/22 (units (unkno wn) date) [History unknown) Confirmed 12/06/22] (unknown) (no (unknown) (unknown) 12/06/22 (units (unkno wn) date) unknown) (unknown) (no (unknown) (unknown) [id number] (units (unkno wn) date) unknown) (unknown) (no (unknown) (unknown) Accompanied by: (units (unknown) date) Self / Same As unknown) Patient (unknown) (no (unknown) (unknown) Age/Sex: 77 / M (units (unknown) date) Date of Service: unknown) (unknown) (no (unknown) (unknown) Allergies (units (unkn own) date) unknown) (unknown) (no (unknown) (unknown) [place], [place] (units ( unknown) date) [id number] unknown) (unknown) (no (unknown) (unknown) Attending Dr: (units ( unknown) date) Brandon Diallo unknown) D.O. (unknown) (no (unknown) (unknown) Bcomplex-C (units (unk nown) date) #13-folic acid 1 unknown) mg-vit D3 1,750 unit disintegrating tablet tab PO (unknown) (no (unknown) (unknown) DAILY 12/06/22 (units (unknown) date) [History unknown) Confirmed 12/06/22] (unknown) (no (unknown) (unknown) : 1945 (units (unknown) date) Acct:[id number] unknown) (unknown) (no (unknown) (unknown) Dept at (units (unkno wn) date) . 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 (units (unkn own) date) Although every unknown) effort is made to edit content, delivery driver errors (unknown) (no (unknown) (unknown) vitamin B [...] wn) date) unknown) (unknown) (no (unknown) (unknown) [id number] (units (unkno wn) date) unknown) (unknown) (no (unknown) (unknown) Accompanied by: (units (unknown) date) Self / Same As unknown) Patient (unknown) (no (unknown) (unknown) Age/Sex: 77 / M (units (unknown) date) Date of Service: unknown) (unknown) (no (unknown) (unknown) Allergies (units (unkn own) date) unknown) (unknown) (no (unknown) (unknown) [place], [place] (units ( unknown) date) [id number] unknown) (unknown) (no (unknown) (unknown) Attending Dr: [...] (unknown) (unknown) : 1945 (units (unknown) date) Acct:[id number] unknown) (unknown) (no (unknown) (unknown) Dept at [...] (unknown) (unknown) Patient: (units (unkno wn) date) Sydow,Edi L unknown) MR#: [id number] (unknown) (no (unknown) (unknown) [...] Visit Reasons: (units (unknown) date) 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 (units (unkn own) date) Although every unknown) effort is made to edit content, delivery driver errors (unknown) (no (unknown) (unknown) vitamin B [...] wn) date) unknown) (unknown) (no (unknown) (unknown) [id number] (units (unkno wn) date) unknown) (unknown) (no [...] own) date) unknown) (unknown) (no (unknown) (unknown) [place] [address] (unit s (unknown) date) unknown) (unknown) (no [...] (unknown) (unknown) : 1945 (units (unknown) date) Acct:[id number] unknown) (unknown) (no (unknown) (unknown) Denies recent [...] (unknown) (unknown) Patient: (units (unkno wn) date) Edi Bennett MR#: unknown) M000 (unknown) (no (unknown) (unknown) [...] Visit Reasons: (units (unknown) date) 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, 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) LSpine, lumbar spine (unknown) (no (unknown) [...] (unknown) date) mg-B-D3 500 unit-E unknown) 30 mamw-xdicyqb-tit xtr capsule 1 cap PO (unknown) (no [...] (unknown) (unknown) omega (units (unkno wn) date) 9-vsc-jmo-fish oil unknown) 60 mg-90 mg-500 mg capsule [...] effort is made unknown) to edit content, delivery driver errors (unknown) (no (unknown) (unknown) vitamin B [...] wn) date) unknown) (unknown) (no (unknown) (unknown) [id number] (units (unkno wn) date) unknown) (unknown) (no [...] own) date) unknown) (unknown) (no (unknown) (unknown) [place], [place] [address] (unit s (unknown) date) unknown) (unknown) (no [...] (unknown) (unknown) : 1945 (units (unknown) date) Acct:[id number] unknown) (unknown) (no (unknown) (unknown) DTR LE: [...] (unknown) (unknown) Patient: (units (unkno wn) date) Edi Bennett MR#: unknown) M000 (unknown) (no (unknown) (unknown) [...] Visit Reasons: (units (unknown) date) 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, 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) 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, lumbar spine (unknown) (no (unknown) [...] (unknown) date) mg-B-D3 500 unit-E unknown) 30 ubwo-vhqlnya-cyf xtr capsule 1 cap PO (unknown) (no [...] (unknown) (unknown) omega (units (unkno wn) date) 0-dxy-rph-fish oil unknown) 60 mg-90 mg-500 mg capsule [...] effort is made unknown) to edit content, delivery driver errors m (unknown) (no (unknown) (unknown) subsequently [...] years ago he had viral encephalitis that Result panel 7 (unknown) (no (unknown) (unknown) (no value) (units (unk nown) date) unknown) (unknown) (no (unknown) (unknown) 01/14/23 (units (unkno wn) date) unknown) (unknown) (no (unknown) (unknown) [id number] (units (unkno wn) date) unknown) (unknown) (no (unknown) (unknown) [address] [place] [address] (units (unknown) date) unknown) (unknown) (no (unknown) (unknown) Accession Number: (units (unknown) date) [id number] unknown) (unknown) (no (unknown) (unknown) Age/Sex: 77 / M (units (unknown) date) Date of Service: unknown) (unknown) (no (unknown) (unknown) Alignment and (units ( unknown) date) Curvature: Grade 1 unknown) retrolisthesis L3-4. Grade 3 anterior (unknown) (no (unknown) (unknown) [place] [address] (unit s (unknown) date) unknown) (unknown) (no (unknown) (unknown) Approved by: Pedro Pablo (units (unknown) date) Kamron Lou on unknown) 01/14/2023 at 16:14 (unknown) (no (unknown) (unknown) Bone Marrow: Marrow (unit s (unknown) date) is of normal overall unknown) signal. No acute vertebral body (unknown) (no (unknown) (unknown) COMPARISON: None. (units (unknown) date) unknown) (unknown) (no (unknown) (unknown) : 1945 (units (unknown) date) Acct:[id number] unknown) (unknown) (no (unknown) (unknown) FINDINGS: (units (unkn own) date) unknown) (unknown) (no (unknown) (unknown) Grade 3 anterior (units (unknown) date) isthmic unknown) spondylolisthesis L5-S1 (unknown) (no (unknown) (unknown) IMPRESSION: (units (un known) date) unknown) (unknown) (no (unknown) (unknown) INDICATIONS: lumbar (unit s (unknown) date) stenosis unknown) (unknown) (no (unknown) (unknown) Image quality: (units (unknown) date) Excellent. unknown) (unknown) (no (unknown) (unknown) [facility] (units (unknown) date) unknown) (unknown) (no (unknown) (unknown) L1-L2: Disc height (units (unknown) date) is preserved. No unknown) central stenosis. No foraminal stenosis (unknown) (no (unknown) (unknown) L2-L3: Disc space (units (unknown) date) narrowing with unknown) posterior disc osteophyte complex results in (unknown) (no (unknown) (unknown) L3-L4: Disc space (units (unknown) date) is preserved. Mild unknown) central stenosis results from disc (unknown) (no (unknown) (unknown) L4-L5: Disc space (units (unknown) date) is preserved. unknown) Circumferen and disc bulge results in (unknown) (no (unknown) (unknown) L5-S1: Normal (units ( unknown) date) appearance. unknown) (unknown) (no (unknown) (unknown) Loc: MRI (units (unkno wn) date) unknown) (unknown) (no (unknown) (unknown) Magnetic Resonance (units (unknown) date) Report unknown) (unknown) (no (unknown) (unknown) Multilevel (units (unk nown) date) degenerative disc unknown) disease and arthropathy results in varying degrees (unknown) (no (unknown) (unknown) Noncontrast (units (un known) date) sagittal T1 spin unknown) echo and T2 fast echo, sagittal STIR, and T2 fast (unknown) (no (unknown) (unknown) Old compression (units (unknown) date) fractures at L1 and unknown) L4 (unknown) (no (unknown) (unknown) Ordering Provider: (units (unknown) date) Brandon Diallo D.O. unknown) (unknown) (no (unknown) (unknown) PROCEDURE: MR (units ( unknown) date) 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 WO CON unknown) (unknown) (no (unknown) (unknown) Paraspinous Soft (units (unknown) date) Tissues: Large right unknown) renal cyst. No hydronephrosis (unknown) (no (unknown) (unknown) Patient: (units (unkno wn) date) DonaldEdi Coleen MR#: unknown) M00 (unknown) (no (unknown) (unknown) Procedure: MR (units ( unknown) date) lumbar spine wo con unknown) (unknown) (no (unknown) (unknown) Signed (units (unkno wn) date) unknown) (unknown) (no (unknown) (unknown) Spinal Cord: Conus (units (unknown) date) medullaris unknown) terminates at the L1 level. Visualized cord (unknown) (no (unknown) (unknown) T12-L1: Disc space (units (unknown) date) narrowing and unknown) retropulsed L1 fracture fragment results in (unknown) (no (unknown) (unknown) TECHNIQUE: (units (unk nown) date) unknown) (unknown) (no (unknown) (unknown) bilateral foraminal (unit s (unknown) date) stenosis unknown) (unknown) (no (unknown) (unknown) bulge. Mild (units (un known) date) unknown) (unknown) (no (unknown) (unknown) central and (units (un known) date) foraminal stenosis unknown) including moderate central stenosis L2-3 and (unknown) (no (unknown) (unknown) central stenosis. (units (unknown) date) Moderate left and unknown) severe right foraminal stenosis (unknown) (no (unknown) (unknown) central stenosis. (units (unknown) date) No foraminal unknown) stenosis (unknown) (no (unknown) (unknown) compression (units (un known) date) unknown) (unknown) (no (unknown) (unknown) demonstrates (units (u nknown) date) unknown) (unknown) (no (unknown) (unknown) foraminal stenosis (units (unknown) date) L2-3, L4-5, L5-S1 unknown) (unknown) (no (unknown) (unknown) fractures present (units (unknown) date) at L1, L4 unknown) (unknown) (no (unknown) (unknown) fractures. Chronic (units (unknown) date) degenerative unknown) endplate changes noted at L3-4. Chronic (unknown) (no (unknown) (unknown) listhesis (units (unkn own) date) unknown) (unknown) (no (unknown) (unknown) may be performed. (units (unknown) date) unknown) (unknown) (no (unknown) (unknown) mild (units (unkno wn) date) unknown) (unknown) (no (unknown) (unknown) moderate central (units (unknown) date) unknown) (unknown) (no (unknown) (unknown) moderate (units (unkno wn) date) unknown) (unknown) (no (unknown) (unknown) normal signal and (units (unknown) date) size. unknown) (unknown) (no (unknown) (unknown) of (units (unkno wn) date) unknown) (unknown) (no (unknown) (unknown) present at L4 L5-S1 (unit s (unknown) date) associated with unknown) distracted pars defects (unknown) (no (unknown) (unknown) severe (units (unkno wn) date) unknown) (unknown) (no (unknown) (unknown) spin echo (units (unkn own) date) unknown) (unknown) (no (unknown) (unknown) stenosis (units (unkno wn) date) unknown) (unknown) (no (unknown) (unknown) stenosis. (units (unkn own) date) Hypertrophic facet unknown) joints results in severe bilateral foraminal (unknown) (no (unknown) (unknown) through the lumbar (units (unknown) date) spine. In cases with unknown) scoliosis, additional coronal T2 fast Social History date description facility 2022-12-06 00:00 Unknown if ever smoked [facility] Vital Signs date measurement value units 2022-12-06 [...]
[2023-01-30 16:10] LABS: BASOPHILS % (AUTO) 0.3 %; HCT - HEMATOCRIT 39.2 % (42.0-52.0); HGB - HEMOGLOBIN 12.4 g/dL (14.0-18.0); LYMPHOCYTES % (AUTO) 5.3 %; MEAN CORPUSCULAR HEMOGLOBIN 27.3 pg (27.0-31.0); MEAN CORPUSCULAR HGB CONC 31.6 g/dL (32.0-36.0); MEAN CORPUSCULAR VOLUME 86.2 fL (80.0-94.0); MEAN PLATELET VOLUME 8.7 fL (7.4-11.4); NEUTROPHILS % (AUTO) 82.2 %; PLT - PLATELET COUNT 467 10^3/uL (130-450); RED BLOOD COUNT 4.55 10^6/uL (4.70-6.10); RED CELL DISTRIBUTION WIDTH 15.9 % (12.0-15.0); WHITE BLOOD COUNT 33.4 x10^3/uL (4.8-10.8)
[2023-01-30 16:11] LABS: ABNORMAL LYMPHS % (MANUAL) 0 %
[2023-01-30 16:14] LABS: GLUCOSE, URINE (UA) NEGATIVE (NEGATIVE); KETONES,URINE (UA) 15 mg/dL (NEGATIVE); LEUKOCYTE ESTERASE, URINE NEGATIVE (NEGATIVE); NITRITE,URINE NEGATIVE (NEGATIVE); OCCULT BLOOD,URINE NEGATIVE (NEGATIVE); PROTEIN,URINE 30 mg/dL (NEGATIVE); UROBILINOGEN,URINE 0.2 (NORMAL) E.U./dL (NORMAL)
[2023-01-30 16:17] LABS: BILIRUBIN,URINE NEGATIVE (NEGATIVE); CLARITY,URINE HAZY (CLEAR); ICTOTEST,URINE NEGATIVE
[2023-01-30 16:24] LABS: ALBUMIN 3.7 g/dL (3.2-5.5); ALBUMIN/GLOBULIN RATIO 0.9 (1.0-2.2); BILIRUBIN,TOTAL 0.9 mg/dL (0.2-1.0); CALCIUM 10.4 mg/dL (8.5-10.3); CREATININE 1.3 mg/dL (0.6-1.2); POTASSIUM 4.2 mmol/L (3.5-5.0)
[2023-01-30 16:26] LABS: BACTERIA,URINE Rare /HPF (None Seen); CASTS, URINE 0-2 Hyaline Casts /LPF; MUCUS,URINE Few Strands; RBC,URINE 0-5 /HPF (0-5); SQUAMOUS EPITHELIAL CELL,UR NONE SEEN (<= Few); WBC,URINE 0-3 /HPF (0-3)
[2023-01-30 16:31] LABS: BAND NEUTROPHILS % (MANUAL) 1 %; DIFFERENTIAL COMMENT MANUAL DIFFERENTIAL; LYMPHOCYTES # (MANUAL) 2.3 10^3/uL (1.5-3.5); LYMPHOCYTES % (MANUAL) 6 %; NEUTROPHILS # (MANUAL) 28.1 10^3/uL (1.5-6.6); PLATELET ESTIMATE, MANUAL INCREASED (>450,000) (NORMAL); PLATELET MORPHOLOGY NORMAL APPEARANCE (NORMAL); RBC MORPHOLOGY (MULTIPLE) NORMAL APPEARANCE (NORMAL); REACTIVE LYMPHS % (MANUAL) 1 %
[2023-01-30] MEDS ORDERED: iohexoL-300 100 ML VIAL ONE (16:33)
[2023-01-30] MEDS ORDERED: SODIUM CHLORIDE 0.9% 1,000 ML IV STA (16:37)
[2023-01-30] MEDS ORDERED: ONDANSETRON 4 MG/2 ML VIAL IVP STA (16:38)
--- NOTE | 2023-01-30 17:18 | CT Report ---
PROCEDURE: ABDOMEN/PELVIS W INDICATIONS: Abdominal pain, acute, nonlocalized CONTRAST: 100mL Omni 300 TECHNIQUE: After the administration of IV contrast, 5 mm thick sections acquired from the diaphragms to the symp hysis. 5 mm thick coronal and sagittal reformats were acquired. For radiation dose reduction, the f ollowing was used: automated exposure control, adjustment of mA and/or kV according to patient size. COMPARISON: None. FINDINGS: Image quality: Excellent. ABDOMEN: Lung bases: Chronic emphysematous changes and interstitial pulmonary fibrosis is seen at bilateral analilia ng bases. Heart size is enlarged, no pericardial effusion. Moderate atherosclerotic calcifications in coronary vessels are seen. Solid organs: Liver and spleen are normal in size and enhancement. Gallbladder is within normal peter its. Biliary system is non dilated. Pancreas enhances normally. No adrenal nodules. Kidneys demon strate normal size and enhancement, without hydronephrosis. 6.6 x 6.4 cm simple cyst is seen in uppe r to midpole of right kidney. Peritoneum and bowel: Patient is status post prior gastric bypass surgery with post surgical changes noted in epigastric region. There is also prior bowel resection with staple line seen in left abdomen . The anastomosis appears grossly intact. Fluid distended small bowel loops are noted in left side of abdomen with a few air-fluid levels. There is suggestion of a zone of transition involving mid abdom en best seen on series 3 image 40 and series 6 image 20. More distal portion of small bowel loops are decompressed. Fecal stasis in the ascending colon and sigmoid colon is seen extending to rectum. No abnormal bowel wall thickening. No mesenteric fat stranding. Nodes and vessels: No retroperitoneal or mesenteric adenopathy by size criteria. Aorta and inferior vena cava are normal in size. Moderate atherosclerotic calcifications in the abdominal aorta is see n. Miscellaneous: No ventral hernias. Surgical clips are noted in anterior abdominal wall and lower pe lvic wall. Small amount of fluid is seen within mid line anterior pelvic wall measures 5.4 x 1 cm in size most consistent with post surgical seroma. No surrounding fat stranding is seen. Appearance is n ot consistent with abscess collection. PELVIS: Genitourinary: Bladder wall thickness is normal. Miscellaneous: No inguinal hernias or adenopathy. Bones: There is right total hip arthroplasty with significant beam hardening artifacts. Osteoarthrit ic changes are noted throughout the bony pelvis. No suspicious bony lesions. Chronic appearing anteri or wedge compression deformity at L1 level is seen within the percent loss of L1 vertebral body heigh t anteriorly. Bilateral pars defect at L5 level is seen with 1.4 cm anterolisthesis of L5 on S1. Dege nerative disc disease throughout lumbar spine is seen. IMPRESSION: 1. Finding is suggestive of moderate grade mid to distal small bowel obstruction with zone of transit ion involving in mid abdomen as above and likely secondary to adhesion. 2. Postsurgical changes from prior gastric bypass surgery and prior bowel resection with intact surgi emil anastomosis. No abnormal bowel wall thickening. No abscess collection. No free fluid of free air. 3. Moderate atherosclerotic disease in the abdominal aorta and bilateral iliac arteries. 4. Postsurgical changes in anterior abdominal wall with likely seroma involving anterior pelvic wall. The appearance is not consistent with abscess collection. 5. Prior right total hip arthroplasty. Chronic appearing anterior wedge compression deformity at L1 l evel. Bilateral pars defects with 1.4 cm anterolisthesis of L5 on S1. 6. COPD and suggestion of chronic interstitial pulmonary fibrosis. Reviewed by: Hola Archer MD on 01/30/2023 5:17 PM PST Approved by: Hola Archer MD on 01/30/2023 5:17 PM PST Station ID: [id number]
--- NOTE | 2023-01-30 17:45 | XRAY Report ---
PROCEDURE: Chest 1 View X-Ray INDICATIONS: leukocytosis TECHNIQUE: One view of the chest was acquired. COMPARISON: Lung bases from CT abdomen pelvis same day FINDINGS: Surgical changes and devices: Right shoulder reverse arthroplasty Lungs and pleura: Bilateral interstitial opacities are present. No lobar consolidation visualized. Mediastinum: Mediastinal contours appear normal. Heart size is normal. Bones and chest wall: No suspicious bony lesions. Overlying soft tissues appear unremarkable. IMPRESSION: Bilateral interstitial opacities, likely interstitial lung disease and/or senescent change. Underlyin g viral or atypical infection or pulmonary edema difficult to exclude. Reviewed by: Jared Elizabeth MD on 01/30/2023 5:44 PM PST Approved by: Jared Elizabeth MD on 01/30/2023 5:44 PM PST Station ID: [id number]
[2023-01-30] MEDS ORDERED: ONDANSETRON ODT 4 MG TABLET TL PRN (17:54)
[2023-01-30] MEDS ORDERED: ACETAMINOPHEN 325 MG TABLET PO PRN (17:54)
[2023-01-30] MEDS ORDERED: ONDANSETRON 4 MG/2 ML VIAL IVP PRN (17:54)
[2023-01-30] MEDS ORDERED: SODIUM CHLORIDE FLUSH 0.9% 10 ML SYRINGE IVP PRN (17:54)
[2023-01-30] MEDS ORDERED: MORPHINE 2 MG/ML CARPUJECT IVP PRN (17:54)
--- NOTE | 2023-01-30 18:17 | HISTORY & PHYSICAL EXAMINATION ---
Chief Complaint - Chief Complaint Chief Complaint: Abdominal pain for several months History of Present Illness - Admitted From Admitted From:: Home - History Obtained From Records Reviewed: [facility] History obtained from: GINA Rodriguez Exam Limitations: None - History of Present Illness HPI Comment/Other: He is a 77-year-old white male who has a history of gastric bypass surgery at the age of 64. In the last few months he has had waxing and waning Lower abdominal pain. He has lost about 20 pounds. He has really emphasized a high- fiber, high vegetable diet for the last 2 years. No vomiting. He did eat an [employer] roast beef sandwich a few days ago and that induce severe epigastric cramping and substernal cramping that was horribly uncomfortable. It scared the heck out of him. No change in bowel habits. Stool color is the same as always And he denies melena. But sometimes his stool has red and it, covering the brown color. He denies urgency, frequency dysuria. But he does have hesitation, occasional retention where his urine does not want to come out and he is to think about it for a while. No change in the color of his urine. No blood in his urine, no blood in his stool. He is pretty sure he has been losing his memory. It is harder for him to remember certain things. For instance he had an event 20 years ago, maybe 25 years ago where he "almost and was in the hospital for for 5 days". But for the life of him he cannot remember what he almost from. Then he shrugs and says "I am here now so it does not matter". He did have a TIA about 15 years ago. He called his primary care [facility] office today because he was just worried about this chronic abdominal pain, and his provider was not available so they transferred him to the nurse advice line for the [facility], and they advised him to come to the ER. In the emergency room temperature was 36.1. Heart rate 63. Respiratory rate 24. Blood pressure 133/73. 97% saturated on room air. He had normal bowel sounds, a soft belly. He had mild tenderness with palpation of the lower abdomen without guarding or rebound. There is no peritoneal findings. He was otherwise in no acute distress. However white cell count was 33.4. Hemoglobin 12.4. Platelets 467. BUN was 32, creatinine 1.3. Glucose 128. Calcium 10.4. CT of the abdomen and pelvis has prior gastric bypass surgery with postsurgical changes in the epigastric region. He also has a bowel resection with staple line seen in the left abdomen. The anastomosis appears grossly intact. He has fluid distended small bowel loops noted in the left side of the abdomen with a few air-fluid levels. There is a suggestion of zone of transition involving mid abdomen and the distal small bowel loops are decompressed. There is no abnormal wall thickening. He has a small amount of fluid seen within the mid line anterior pelvic wall measuring 5.4 x 1 cm consistent with a postsurgical seroma. But this patient has not had surgery in years. After discussion with the ER provider, and general surgery on-call, it has been decided that the patient's white cell count of 33.4 thousand warrants an inpatient status. The patient himself is not that ill and it is a chronic complaint of several months duration but in combination with a possbile partial small bowel obstruction, mild kidney insufficiency, and an elevated white cell count (no fever) I have decided to admit the patient. History - Past Medical History Cardiovascular: reports: Hypertension, High cholesterol, Coronary artery disease (He cannot remember the year he had a stent.), Angina Respiratory: reports: None Neuro: reports: Dementia (Mild memory loss that may be getting worse, he is not sure), TIA (10 years ago) Endocrine/Autoimmune: reports: None GI: reports: Other (Gastric bypass surgery) : reports: Benign prostate hypertrophy, Retention (Mild.), Nocturia (Infrequently, once a night) HEENT: reports: None Psych: reports: Depression (Occasionally blue, it comes and goes, not severe) Musculoskeletal: reports: Osteoarthritis, Gout, Other (Fall while walking dog resulted in R shoulder girdle fracture, R fem neck bruise September 2018) Derm: reports: None MRSA Hx?: No - Past Surgical History General: reports: Gastric surgery Ortho: reports: Hip replacement, Knee replacement, Other Cardiovascular: reports: Coronary stent HEENT: reports: Tonsil/Adenoidectomy - Family & Social History Family History Comment/Other: Dad of heart attack in his 70s. Mom was a barfly and of complications of a bad life in her 50s. 1 brother and 1 sister. They are younger than him and he says they are healthy without any major medical illness. 1 son and 1 daughter. Son lives in [place]. Daughter lives in [place]. He says they are also completely healthy. Living arrangement: At home Living Situation: Alone Social History Notes: He smoked in his 20s. Maybe smoked half a pack per day for about 5 years then quit. He was never much of a drinker. However ever since his last life partner left him, he is gotten increasingly lonely. She left him about 10 years ago. He now has his own personal "happy hour" at night with dinner. It is a tall glass and he has 1 drink a night but it is a fairly stiff drink by description. It can be either gin, or bourbon. He is also recently taken to [facility]. No history of alcohol withdrawal. No history of recreational substance abuse. 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 - Substance History Use: Uses substance without health or social issues: Alcohol Use Issues: Intoxication, Mood Disorder - POLST Patient has POLST: No POLST Status: DNR Meds/Allgy - Home Medications Home Medications: Ambulatory Orders Medication Instructions Recorded Confirmed Atorvastatin [Lipitor] 10 mg PO DAILY 09/22/18 07/31/19 allopurinoL [Allopurinol] 1 tab PO DAILY 09/22/18 07/31/19 amLODIPine [Norvasc] 5 mg PO DAILY 09/22/18 07/31/19 oxyCODONE [Roxicodone] 5 mg PO Q4-6H #20 tablet 09/22/18 07/31/19 - Allergies Allergies/Adverse Reactions: Allergies Allergy/AdvReac Type Severity Reaction Status Date / Time oxycodone [From OxyContin] Allergy Itching Verified 01/30/23 15:47 Review of Systems - Musculoskeletal Musculoskeletal: reports: Other (Spontaneous left biceps hematoma when he was reaching for something in the kitchen a month ago. Seen in the ER here.) - Neurological Neurological: reports: Memory problems - Hematologic/Lymphatic Hematologic/Lymphatic: reports: Bruising - All Other Systems All Other Systems: reports: Reviewed and negative (Pertinent positives were seen in history of present illness) Prior Level of Functionality: He still regards himself is independent and drives, pays bills, does light housekeeping, does not use any durable medical equipment Exam - Vital Signs Reviewed Vital Signs: Yes Vital Signs: Vital Signs x48h Temp Pulse Resp BP Pulse Ox 01/30/23 18:00 65 14 153/72 H 95 01/30/23 16:53 65 16 162/81 H 100 01/30/23 15:58 17 01/30/23 15:42 36.1 C L 63 24 133/73 H 97 - Physical Exam General Appearance: positive: No acute distress, Alert (Bearded, looks stated age), Other (Thin white male, speech is slightly stuttering, and throughout his sentence structure there is occasional word finding problems and memory gaps) Eyes Bilateral: positive: PERRL, EOMI ENT: positive: Pharynx nml Neck: positive: No JVD. negative: Stiff neck Respiratory: positive: No respiratory distress. negative: Wheezes, Rales, Rhonchi Cardiovascular: positive: Regular rate & rhythm, Systolic murmur Peripheral Pulses: positive: 1+ Abdomen: positive: No organomegaly, Nml bowel sounds, No distention, Tenderness (Over the left lower quadrant and coming up the left mid abdominal wall. Some in the central area of his abdomen over the umbilicus. Mild. It is uncomfortable but not really painful). negative: Guarding, Rebound Skin: positive: Warm, Dry Extremities: positive: Full ROM, Other (Very thin. Not quite cachectic but almost no body fat) Neurologic/Psychiatric: positive: Oriented x3 (But gaps in memory, problems with word finding), CN's nml (2-12), Motor nml Conclusion/Plan - Problem List (1) Partial small bowel obstruction Conclusion/Plan: Although the CT report is quite impressive, the patient is passing gas and stool. I would not call this a complete bowel obstruction. He does not have a fever. He is without any signs or symptoms of sepsis, or infection. Nevertheless the white cell count elevation is worrisome. His last white cell count in the EMR was 9.7 in July 2019. After discussing this in detail with Dr. Duran, general surgery, we both feel that the patient has a clinical obstipation problem. This is probably been going on for months where you can see decompressed bowel at a transition point. Proximal bowel is full of stool, and distal bowel is also full of stool. Patient is passing flatus and stool. Differential diagnosis with a partial small bowel obstruction includes adhesions, intussusception, tumor. In this gentlemen's case he has had significant abdominal surgery so statistically we would be going with adhesions as the cause But are clinically feeling, based on lack of severity of presentation, relatively benign physical exam, that this is going to be obstipation.. Plan: Inpatient status IV fluids for hydration at 100 cc an hour of normal saline Pain management with morphine 2 mg IV push every 2 hours as needed for pain Antiemetics with IV Compazine as needed, IV Zofran as needed, surgery consultation will be provided tonight. The surgeon is in clinic and will be by to see the patient after clinic. Gastrografin challenge Ordered. I discussed this with general surgery who feels this might help this patient clear up. He will need a nutrition consult tomorrow to help him with a low residue diet. (2) Abdominal wall seroma Conclusion/Plan: I am unclear where the source of the seroma would be since this patient has not had abdominal surgery or trauma by description for several years now. There is no mesh. It is quite small on physical exam. I will discussed with general surgery but I do not think we can end up doing anything with this. Qualifiers: Encounter type: initial encounter Qualified Code(s): S30.1XXA - Contusion of abdominal wall, initial encounter (3) Memory loss Conclusion/Plan: He describes a previous TIA, he also describes arteriosclerosis by virtue of having a stent in his coronary artery. His dementia could also be from alcohol abuse. At this time is not much to be acutely done. I will check a B12, folate, TSH, RPR. He says that he has been noticing it more and more. He knows that he will never go live with his kids because they have their own life. In the end he thinks he will most likely sell the condominium he lives at, and use those funds to live in an assisted living facility or fci facility at the end of his days. (4) Acute kidney injury Conclusion/Plan: Mild. I suspect decreased p.o. intake, too much alcohol intake, and he will be getting IV fluids. I will recheck tomorrow. Avoid nephrotoxic agents. (5) Leukocytosis Conclusion/Plan: Right now, his belly is relatively tender. Not anything that indicates an acute perforation. CT also confirms there is no free air or microperforations. Alth ough he has symptoms of mild prostatism I do not suspect a UTI.Urinalysis is negative. His lung exam is normal and he does not give any signs or symptoms of pneumonia, viral infection. Right now I am regarding his leukocytosis is demargination. CBC will be checked tomorrow. If he spikes a temp, will start empiric antibiotics with single agent Zosyn Qualifiers: Leukocytosis type: leukemoid reaction Qualified Code(s): D72.823 - Leukemoid reaction (6) Hypercalcemia Conclusion/Plan: Recheck tomorrow after hydration. If his calcium is still elevated, consider PTH - Lab Results Lab results reviewed: Yes Fish Bones: 01/30/23 16:03 01/30/23 16:03 - Diagnostic Imaging Results Diagnostic Imaging Results: positive: Final report reviewed - EKG Results EKG Interpreted Independently: No Core Measures - Anticipated LOS I expect patient to be DC'd or transferred within 96 hours.: Yes - DVT/VTE - Prophylaxis VTE/DVT Prophylaxis med ordered at admit?: Yes
[2023-01-30] MEDS: SODIUM CHLORIDE 0.9% 1,000 ML IV SCH (18:47)
[2023-01-30] MEDS ORDERED: iohexoL-300 100 ML VIAL IVP ONE (19:46)
[2023-01-30 19:48] LABS: CORONAVIRUS 229E-RESP PCR NOT DETECTED; CORONAVIRUS HKU1-RESP PCR NOT DETECTED; CORONAVIRUS NL63-RESP PCR NOT DETECTED; CORONAVIRUS OC43-RESP PCR NOT DETECTED; HUMAN METAPNEUMOVIRUS NOT DETECTED; INFLUENZA A- RESP PCR PANEL NOT DETECTED; RHINOVIRUS/ENTEROVIRUS NOT DETECTED; SARS-CoV-2 -RESP PCR PANEL NOT DETECTED
[2023-01-30 19:49] LABS: B. PARAPERTUSSIS- RESP PCR PAN NOT DETECTED; B. PERTUSSIS- RESP PCR PANEL NOT DETECTED; C. PNEUMONIAE- RESP PCR PANEL NOT DETECTED; INFLUENZA B - RESP PCR PANEL NOT DETECTED; M. PNEUMONIAE- RESP PCR PANEL NOT DETECTED; PARAINFLUENZA VIRUS 1 NOT DETECTED; PARAINFLUENZA VIRUS 2 NOT DETECTED; PARAINFLUENZA VIRUS 3 NOT DETECTED; PARAINFLUENZA VIRUS 4 NOT DETECTED; RSV- RESP PCR PANEL NOT DETECTED
--- NOTE | 2023-01-30 21:16 | CONSULTATION NOTE ---
Referring Provider Consult Date: 01/30/23 Chief Complaint - Chief Complaint Chief Complaint: abdominal discomfort for a couple months History of Present Illness - History Obtained From Records Reviewed: yes History obtained from: pt Exam Limitations: none - History of Present Illness HPI Comment/Other: mild vague lower abdominal discomfort for a couple months. a week ago had pain after a burger. otherwise no significant abdominal pain. he describes normal bowel function and habits with a bm nearly daily. denies nausea and vomiting he also describes a very high fiber diet. history gastric bypass History - Past Medical History Cardiovascular: reports: Hypertension, High cholesterol, Coronary artery disease (He cannot remember the year he had a stent.), Angina Respiratory: reports: None Neuro: reports: Dementia (Mild memory loss that may be getting worse, he is not sure), TIA (10 years ago) Endocrine/Autoimmune: reports: None GI: reports: Other (Gastric bypass surgery) : reports: Benign prostate hypertrophy, Retention (Mild.), Nocturia (Infrequently, once a night) HEENT: reports: None Psych: reports: Depression (Occasionally blue, it comes and goes, not severe) Musculoskeletal: reports: Osteoarthritis, Gout, Other (Fall while walking dog resulted in R shoulder girdle fracture, R fem neck bruise September 2018) Derm: reports: None MRSA Hx?: No Other Past Medical History: 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 - Past Surgical History General: reports: Gastric surgery Ortho: reports: Hip replacement, Knee replacement, Other Cardiovascular: reports: Coronary stent HEENT: reports: Tonsil/Adenoidectomy - Family & Social History Family History Comment/Other: Dad of heart attack in his 70s. Mom was a barfly and of complications of a bad life in her 50s. 1 brother and 1 sister. They are younger than him and he says they are healthy without any major medical illness. 1 son and 1 daughter. Son lives in [place]. Daughter lives in [place]. He says they are also completely healthy. Living arrangement: At home Living Situation: Alone Social History Notes: He smoked in his 20s. Maybe smoked half a pack per day for about 5 years then quit. He was never much of a drinker. However ever since his last life partner left him, he is gotten increasingly lonely. She left him about 10 years ago. He now has his own personal "happy hour" at night with dinner. It is a tall glass and he has 1 drink a night but it is a fairly stiff drink by description. It can be either gin, or bourbon. He is also recently taken to [facility]. No history of alcohol withdrawal. No history of recreational substance abuse. 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 - Substance History Use: Uses substance without health or social issues: Alcohol Use Issues: Intoxication, Mood Disorder - POLST Patient has POLST: No POLST Status: DNR Meds/Allgy - Home Medications Home Medications: Ambulatory Orders Medication Instructions Recorded Confirmed Atorvastatin [Lipitor] 10 mg PO DAILY 09/22/18 07/31/19 allopurinoL [Allopurinol] 1 tab PO DAILY 09/22/18 07/31/19 amLODIPine [Norvasc] 5 mg PO DAILY 09/22/18 07/31/19 oxyCODONE [Roxicodone] 5 mg PO Q4-6H #20 tablet 09/22/18 07/31/19 - Allergies Allergies/Adverse Reactions: Allergies Allergy/AdvReac Type Severity Reaction Status Date / Time oxycodone [From OxyContin] Allergy Itching Verified 01/30/23 15:47 Review of Systems - Other Findings Other Findings: 10 pt ros as above otherwise unremarkable Exam - Vital Signs Reviewed Vital Signs: Yes Vital Signs: Vital Signs x48h Temp Pulse Pulse Resp BP BP Pulse Ox 01/30/23 19:05 36.7 C 64 24 155/77 H 97 01/30/23 18:23 73 17 153/72 H 96 01/30/23 18:00 65 14 153/72 H 95 01/30/23 16:53 65 16 162/81 H 100 01/30/23 15:58 17 01/30/23 15:42 36.1 C L 63 24 133/73 H 97 - Physical Exam General Appearance: positive: No acute distress, Alert Eyes Bilateral: positive: PERRL, EOMI ENT: positive: No signs of dehydration Neck: positive: No JVD, Trachea midline Respiratory: positive: No respiratory distress Abdomen: positive: Other (very minimal distension and tenderness. benign abdomen) Neurologic/Psychiatric: positive: Oriented x3 Conclusion/Plan - Problem List (1) Partial small bowel obstruction Conclusion/Plan: no high grade small bowel obstruction. on my review of the ct he seems to have a mild chronic diminished motility of the small bowel perhaps due to significant fiber intake he denies nausea and vomiting. abdominal exam nearly normal. we discussed gastrografin small bowel follow through would be very useful. he i s ok with this. clears ok for now - Lab Results Lab results reviewed: Yes Fish Bones: 01/30/23 16:03 01/30/23 16:03
[2023-01-31] MEDS: SODIUM CHLORIDE FLUSH 0.9% 10 ML SYRINGE IVP SCH ×3 (00:43→16:24)
[2023-01-31] MEDS: SODIUM CHLORIDE 0.9% 1,000 ML IV SCH ×2 (03:54→13:44)
[2023-01-31 05:13] LABS: BASOPHILS % (AUTO) 0.4 %; EOSINOPHILS % (AUTO) 0.6 %; HGB - HEMOGLOBIN 10.4 g/dL (14.0-18.0); LYMPHOCYTES % (AUTO) 6.2 %; MEAN CORPUSCULAR HEMOGLOBIN 27.2 pg (27.0-31.0); MEAN CORPUSCULAR HGB CONC 31.5 g/dL (32.0-36.0); MEAN CORPUSCULAR VOLUME 86.2 fL (80.0-94.0); MEAN PLATELET VOLUME 8.8 fL (7.4-11.4); MONOCYTES % (AUTO) 9.1 %; NEUTROPHILS % (AUTO) 82.2 %; PLT - PLATELET COUNT 398 10^3/uL (130-450); RED BLOOD COUNT 3.83 10^6/uL (4.70-6.10); RED CELL DISTRIBUTION WIDTH 15.9 % (12.0-15.0); WHITE BLOOD COUNT 23.7 x10^3/uL (4.8-10.8)
[2023-01-31 05:16] LABS: ABNORMAL LYMPHS % (MANUAL) 0 %; BAND NEUTROPHILS % (MANUAL) 0 %
[2023-01-31 05:28] LABS: CALCIUM 8.8 mg/dL (8.5-10.3); CREATININE 0.7 mg/dL (0.6-1.2)
[2023-01-31 05:35] LABS: EOSINOPHILS # (MANUAL) 0.2 10^3/uL (0-0.7); LYMPHOCYTES # (MANUAL) 1.4 10^3/uL (1.5-3.5); LYMPHOCYTES % (MANUAL) 6 %; MONOCYTES # (MANUAL) 2.4 10^3/uL (0.0-1.0); NEUTROPHILS # (MANUAL) 19.7 10^3/uL (1.5-6.6); RBC MORPHOLOGY (MULTIPLE) 1+ HYPOCHROMASIA (NORMAL)
[2023-01-31 05:36] LABS: DIFFERENTIAL COMMENT MANUAL DIFFERENTIAL; PLATELET ESTIMATE, MANUAL NORMAL (130-450,000) (NORMAL); PLATELET MORPHOLOGY NORMAL APPEARANCE (NORMAL); WBC MORPHOLOGY (MULTIPLE) NORMAL APPEARANCE (NORMAL)
[2023-01-31 05:48] LABS: THYROID STIMULATING HORMONE 2.35 uIU/mL (0.34-5.60)
[2023-01-31] MEDS ORDERED: DIATR MEGLU/DIATRIZOATE SODIUM 120 ML BOTTLE ONE (06:31)
[2023-01-31] MEDS ORDERED: diphenhydrAMINE 25 MG CAPSULE PO PRN (07:54)
[2023-01-31] MEDS ORDERED: DIATR MEGLU/DIATRIZOATE SODIUM 120 ML BOTTLE PO ONE (08:46)
--- NOTE | 2023-01-31 10:57 | PHARMACY PROGRESS NOTE ---
- Best Possible Medication History Admit Date and Time: 01/30/23 0232 Processed by: Pharmacy Medication History completed: Yes Patient Interview: Completed Secondary Source(s): Pharmacy records, Insurance records As the person ultimately responsible for medication therapy, providers are able to order a medication from an existing home medication list in [facility] via the "Reconcile Routine" prior to Confirmation of that medication by sales support coordinator. Such practice is discouraged except when the physician, in their clinical judgment, deems that a medical need exists for a medication without regard to previous use.
--- NOTE | 2023-01-31 11:12 | XRAY Report ---
PROCEDURE: SBFT Challenge Panel INDICATIONS: PARTIAL SBO DUE TO OBSTIPATION COMPARISON: None CONTRAST: Oral Gastrografin FINDINGS: KUB: Preprocedural certified personal finance counselor film demonstrates air-filled loops of small bowel which are mildly dilated. No suspicious abdominal calcifications. Visualized solid organ contours appear normal. No suspici ous bony abnormalities. Small bowel: At the 1 and 2 hour study, contrast was in the mid small bowel. IMPRESSION: No progression of contrast at the 1 hour and 2 hour study beyond the mid small bowel suggests small b owel obstruction. An additional 4 hour study will be performed and dictated separately. Reviewed by: Caleb Morgan on 01/31/2023 11:10 AM [facility] Approved by: Caleb Morgan on 01/31/2023 11:10 AM [facility] Station ID: [id number]
[2023-01-31 14:19] LABS: % IRON SATURATION 6 % (20-50); IRON 20 ug/dL (45-182); TOTAL IRON BINDING CAPACITY 322 ug/dL (250-450); TRANSFERRIN 230 mg/dL (180-329)
--- NOTE | 2023-01-31 15:39 | XRAY Report ---
PROCEDURE: Abdomen 1 View X-Ray INDICATIONS: sbo TECHNIQUE: One view of the abdomen acquired. COMPARISON: CT abdomen pelvis 01/30/2023 FINDINGS: Surgical changes and devices: Right hip arthroplasty. Bowel: Bowel gas pattern is appearance of mildly dilated fluid-filled loops of small bowel although slightly less prominent when compared to prior exam. Soft tissues: No suspicious abdominal calcifications. Visualized solid organ contours appear normal in size. Bones: No suspicious bony lesions. IMPRESSION: Persistent appearance of small bowel obstruction although less prominent when compared to prior exam. Reviewed by: Adelaida Salazar MD on 01/31/2023 3:37 PM PST Approved by: Adelaida Salazar MD on 01/31/2023 3:37 PM PST Station ID: [id number]
--- NOTE | 2023-01-31 15:43 | PROVIDER PROGRESS NOTE ---
Subjective - Subjective Pt reports feeling: Improved (he has minimal abdominal discomfort. multiple bms. feels well and wants to go home) Objective - Vital Signs/Intake & Output Reviewed Vital Signs: Yes Vital Signs: Vital Signs x48h Temp Pulse Resp BP Pulse Ox 01/31/23 08:00 36.9 C 62 20 132/67 H 95 Intake & Output: Intake & Output 01/28/23 01/29/23 01/30/23 01/31/23 23:59 23:59 23:59 23:59 Intake Total 1000 2395.000 Balance 1000 2395.000 - Objective General Appearance: positive: No acute distress, Alert Eyes Bilateral: positive: PERRL, EOMI, No scleral icterus Neck: positive: No JVD, Trachea midline Respiratory: positive: No respiratory distress Abdomen: positive: No distention (minimal lower abdominal tenderness. soft benign abdomen) Neurologic/Psychiatric: positive: Oriented x3 - Lab Results Fish Bones: 01/31/23 05:05 01/31/23 05:05 Other Labs: Lab Results x24hrs 01/31/23 01/31/23 01/31/23 Range/Units 13:47 13:47 05:05 WBC (4.8-10.8) x10^3/uL RBC (4.70-6.10) 10^6/uL Hgb (14.0-18.0) g/dL Hct (42.0-52.0) % MCV (80.0-94.0) fL MCH (27.0-31.0) pg MCHC (32.0-36.0) g/dL RDW (12.0-15.0) % Plt Count (130-450) 10^3/uL MPV (7.4-11.4) fL Neut # (Auto) Lymph # (Auto) Linn # (Auto) Eos # (Auto) Baso # (Auto) Absolute Nucleated RBC Total Counted Band Neuts % (Manual) (0 - 10) % Reactive Lymphs % (Man) % Abnorm Lymph % (Manual) % Nucleated RBC % Neutrophils # (Manual) (1.5-6.6) 10^3/uL Lymphocytes # (Manual) (1.5-3.5) 10^3/uL Monocytes # (Manual) (0.0-1.0) 10^3/uL Eosinophils # (Manual) (0-0.7) 10^3/uL Basophils # (Manual) (0-0.1) 10^3/uL Differential Comment WBC Morphology (NORMAL) Platelet Estimate (NORMAL) Platelet Morphology (NORMAL) RBC Morph Micro Appear (NORMAL) Sodium (135-145) mmol/L Potassium (3.5-5.0) mmol/L Chloride (101-111) mmol/L Carbon Dioxide (21-32) mmol/L Anion Gap (6-13) BUN (6-20) mg/dL Creatinine (0.6-1.2) mg/dL Estimated GFR (MDRD) (>89) Glucose (70-100) mg/dL Calcium (8.5-10.3) mg/dL Iron 20 L (45-182) ug/dL TIBC 322 (250-450) ug/dL % Saturation 6 L (20-50) % Transferrin 230 (180-329) mg/dL Ferritin 83.2 (23.9-336.2) ng/mL Total Bilirubin (0.2-1.0) mg/dL AST (10-42) IU/L ALT (10-60) IU/L Alkaline Phosphatase (42-121) IU/L Total Protein (6.7-8.2) g/dL Albumin (3.2-5.5) g/dL Globulin (2.1-4.2) g/dL Albumin/Globulin Ratio (1.0-2.2) Lipase (22-51) U/L Vitamin B12 3499 H (180-914) pg/mL TSH 2.35 (0.34-5.60) uIU/mL Urine Color Urine Clarity (CLEAR) Urine pH (5.0-7.5) PH Ur Specific [place] (1.002-1.030) Urine Protein (NEGATIVE) mg/dL Urine Glucose (UA) (NEGATIVE) mg/dL Urine Ketones (NEGATIVE) mg/dL Urine Occult Blood (NEGATIVE) Urine Nitrite (NEGATIVE) Urine Bilirubin (NEGATIVE) Urine Urobilinogen (NORMAL) E.U./dL Ur Leukocyte Esterase (NEGATIVE) Urine RBC (0-5) /HPF Urine WBC (0-3) /HPF Ur Squamous Epith Cells (<= Few) Urine Bacteria (None Seen) /HPF Urine Casts /LPF Urine Mucus Ur Microscopic Review Urine Culture Comments Nasal Adenovirus (PCR) Nasal B. parapertussis DNA (PCR) Nasal Coronavir 229E PCR Nasal Coronavir HKU1 PCR Nasal Coronavir NL63 PCR Nasal Coronavir OC43 PCR Nasal Enterovir/Rhinovir PCR Nasal Influenza B PCR Nasal Influenza A PCR Nasal Parainfluen 1 PCR Nasal Parainfluen 2 PCR Nasal Parainfluen 3 PCR Nasal Parainfluen 4 PCR Nasal RSV (PCR) Nasal B.pertussis DNA PCR Nasal C.pneumoniae (PCR) Sawyer Human Metapneumo PCR Nasal M.pneumoniae (PCR) Nasal SARS-CoV-2 (PCR) 01/31/23 01/31/23 01/30/23 Range/Units 05:05 05:05 18:11 WBC 23.7 H (4.8-10.8) x10^3/uL RBC 3.83 L (4.70-6.10) 10^6/uL Hgb 10.4 L (14.0-18.0) g/dL Hct 33.0 L (42.0-52.0) % MCV 86.2 (80.0-94.0) fL MCH 27.2 (27.0-31.0) pg MCHC 31.5 L (32.0-36.0) g/dL RDW 15.9 H (12.0-15.0) % Plt Count 398 (130-450) 10^3/uL MPV 8.8 (7.4-11.4) fL Neut # (Auto) Not Reportable Lymph # (Auto) Not Reportable Linn # (Auto) Not Reportable Eos # (Auto) Not Reportable Baso # (Auto) Not Reportable Absolute Nucleated RBC Not Reportable Total Counted 100 Band Neuts % (Manual) 0 (0 - 10) % Reactive Lymphs % (Man) % Abnorm Lymph % (Manual) 0 % Nucleated RBC % Not Reportable Neutrophils # (Manual) 19.7 H (1.5-6.6) 10^3/uL Lymphocytes # (Manual) 1.4 L (1.5-3.5) 10^3/uL Monocytes # (Manual) 2.4 H (0.0-1.0) 10^3/uL Eosinophils # (Manual) 0.2 (0-0.7) 10^3/uL Basophils # (Manual) 0.0 (0-0.1) 10^3/uL Differential Comment MANUAL DIFFERENTIAL WBC Morphology NORMAL APPEARANCE (NORMAL) Platelet Estimate NORMAL (130-450,000) (NORMAL) Platelet Morphology NORMAL APPEARANCE (NORMAL) RBC Morph Micro Appear 1+ HYPOCHROMASIA (NORMAL) Sodium 139 (135-145) mmol/L Potassium 4.0 (3.5-5.0) mmol/L Chloride 105 (101-111) mmol/L Carbon Dioxide 26 (21-32) mmol/L Anion Gap 8.0 (6-13) BUN 24 H (6-20) mg/dL Creatinine 0.7 (0.6-1.2) mg/dL Estimated GFR (MDRD) 109 (>89) Glucose 90 (70-100) mg/dL Calcium 8.8 (8.5-10.3) mg/dL Iron (45-182) ug/dL TIBC (250-450) ug/dL % Saturation (20-50) % Transferrin (180-329) mg/dL Ferritin (23.9-336.2) ng/mL Total Bilirubin (0.2-1.0) mg/dL AST (10-42) IU/L ALT (10-60) IU/L Alkaline Phosphatase (42-121) IU/L Total Protein (6.7-8.2) g/dL Albumin (3.2-5.5) g/dL Globulin (2.1-4.2) g/dL Albumin/Globulin Ratio (1.0-2.2) Lipase (22-51) U/L Vitamin B12 (180-914) pg/mL TSH (0.34-5.60) uIU/mL Urine Color Urine Clarity (CLEAR) Urine pH (5.0-7.5) PH Ur Specific [place] (1.002-1.030) Urine Protein (NEGATIVE) mg/dL Urine Glucose (UA) (NEGATIVE) mg/dL Urine Ketones (NEGATIVE) mg/dL Urine Occult Blood (NEGATIVE) Urine Nitrite (NEGATIVE) Urine Bilirubin (NEGATIVE) Urine Urobilinogen (NORMAL) E.U./dL Ur Leukocyte Esterase (NEGATIVE) Urine RBC (0-5) /HPF Urine WBC (0-3) /HPF Ur Squamous Epith Cells (<= Few) Urine Bacteria (None Seen) /HPF Urine Casts /LPF Urine Mucus Ur Microscopic Review Urine Culture Comments Nasal Adenovirus (PCR) NOT DETECTED Nasal B. parapertussis DNA (PCR) NOT DETECTED Nasal Coronavir 229E PCR NOT DETECTED Nasal Coronavir HKU1 PCR NOT DETECTED Nasal Coronavir NL63 PCR NOT DETECTED Nasal Coronavir OC43 PCR NOT DETECTED Nasal Enterovir/Rhinovir PCR NOT DETECTED Nasal Influenza B PCR NOT DETECTED Nasal Influenza A PCR NOT DETECTED Nasal Parainfluen 1 PCR NOT DETECTED Nasal Parainfluen 2 PCR NOT DETECTED Nasal Parainfluen 3 PCR NOT DETECTED Nasal Parainfluen 4 PCR NOT DETECTED Nasal RSV (PCR) NOT DETECTED Nasal B.pertussis DNA PCR NOT DETECTED Nasal C.pneumoniae (PCR) NOT DETECTED Sawyer Human Metapneumo PCR NOT DETECTED Nasal M.pneumoniae (PCR) NOT DETECTED Nasal SARS-CoV-2 (PCR) NOT DETECTED 01/30/23 01/30/23 01/30/23 Range/Units 16:03 16:03 16:03 WBC 33.4 H (4.8-10.8) x10^3/uL RBC 4.55 L (4.70-6.10) 10^6/uL Hgb 12.4 L (14.0-18.0) g/dL Hct 39.2 L (42.0-52.0) % MCV 86.2 (80.0-94.0) fL MCH 27.3 (27.0-31.0) pg MCHC 31.6 L (32.0-36.0) g/dL RDW 15.9 H (12.0-15.0) % Plt Count 467 H (130-450) 10^3/uL MPV 8.7 (7.4-11.4) fL Neut # (Auto) Not Reportable Lymph # (Auto) Not Reportable Linn # (Auto) Not Reportable Eos # (Auto) Not Reportable Baso # (Auto) Not Reportable Absolute Nucleated RBC Not Reportable Total Counted 100 Band Neuts % (Manual) 1 (0 - 10) % Reactive Lymphs % (Man) 1 % Abnorm Lymph % (Manual) 0 % Nucleated RBC % Not Reportable Neutrophils # (Manual) 28.1 H (1.5-6.6) 10^3/uL Lymphocytes # (Manual) 2.3 (1.5-3.5) 10^3/uL Monocytes # (Manual) 3.0 H (0.0-1.0) 10^3/uL Eosinophils # (Manual) 0.0 (0-0.7) 10^3/uL Basophils # (Manual) 0.0 (0-0.1) 10^3/uL Differential Comment MANUAL DIFFERENTIAL WBC Morphology (NORMAL) Platelet Estimate INCREASED (>450,000) (NORMAL) Platelet Morphology NORMAL APPEARANCE (NORMAL) RBC Morph Micro Appear NORMAL APPEARANCE (NORMAL) Sodium 137 (135-145) mmol/L Potassium 4.2 (3.5-5.0) mmol/L Chloride 97 L (101-111) mmol/L Carbon Dioxide 27 (21-32) mmol/L Anion Gap 13.0 (6-13) BUN 32 H (6-20) mg/dL Creatinine 1.3 H (0.6-1.2) mg/dL Estimated GFR (MDRD) 53 L (>89) Glucose 128 H (70-100) mg/dL Calcium 10.4 H (8.5-10.3) mg/dL Iron (45-182) ug/dL TIBC (250-450) ug/dL % Saturation (20-50) % Transferrin (180-329) mg/dL Ferritin (23.9-336.2) ng/mL Total Bilirubin 0.9 (0.2-1.0) mg/dL AST 30 (10-42) IU/L ALT 15 (10-60) IU/L Alkaline Phosphatase 57 (42-121) IU/L Total Protein 8.0 (6.7-8.2) g/dL Albumin 3.7 (3.2-5.5) g/dL Globulin 4.3 H (2.1-4.2) g/dL Albumin/Globulin Ratio 0.9 L (1.0-2.2) Lipase 25 (22-51) U/L Vitamin B12 (180-914) pg/mL TSH (0.34-5.60) uIU/mL Urine Color DARK YELLOW Urine Clarity HAZY (CLEAR) Urine pH 5.0 (5.0-7.5) PH Ur Specific [place] >=1.030 H (1.002-1.030) Urine Protein 30 H (NEGATIVE) mg/dL Urine Glucose (UA) NEGATIVE (NEGATIVE) mg/dL Urine Ketones 15 H (NEGATIVE) mg/dL Urine Occult Blood NEGATIVE (NEGATIVE) Urine Nitrite NEGATIVE (NEGATIVE) Urine Bilirubin NEGATIVE (NEGATIVE) Urine Urobilinogen 0.2 (NORMAL) (NORMAL) E.U./dL Ur Leukocyte Esterase NEGATIVE (NEGATIVE) Urine RBC 0-5 (0-5) /HPF Urine WBC 0-3 (0-3) /HPF Ur Squamous Epith Cells NONE SEEN (<= Few) Urine Bacteria Rare (None Seen) /HPF Urine Casts 0-2 Hyaline Casts /LPF Urine Mucus Few Strands Ur Microscopic Review INDICATED Urine Culture Comments NOT INDICATED Nasal Adenovirus (PCR) Nasal B. parapertussis DNA (PCR) Nasal Coronavir 229E PCR Nasal Coronavir HKU1 PCR Nasal Coronavir NL63 PCR Nasal Coronavir OC43 PCR Nasal Enterovir/Rhinovir PCR Nasal Influenza B PCR Nasal Influenza A PCR Nasal Parainfluen 1 PCR Nasal Parainfluen 2 PCR Nasal Parainfluen 3 PCR Nasal Parainfluen 4 PCR Nasal RSV (PCR) Nasal B.pertussis DNA PCR Nasal C.pneumoniae (PCR) Sawyer Human Metapneumo PCR Nasal M.pneumoniae (PCR) Nasal SARS-CoV-2 (PCR) - Diagnostic Imaging Diagnostic Imaging Results: positive: Read independently Assessment/Plan - Problem List (1) Partial small bowel obstruction Impression: multiple bms today. feeling well and wants to go home. we discussed soft low fiber diet for several days ok for d/c. follow up with surgery and primary care. may need a hematology consult
[2023-01-31 15:56] VITALS: BP 154/76
--- NOTE | 2023-01-31 17:02 | Discharge Plan ---
Discharge Plan Problem Reviewed?: Yes Disposition: Home, Self Care Condition: Fair Diet: Regular (small frequent LOW FIBER meals) Activity Restrictions: Activity as Tolerated Shower Restrictions: No Driving Restrictions: No Instruction Topics: Diet Low Residue Health Concerns: You presented to our emergency room at the request of the advice nurse from [facility]. You described her that you have been having months of lower abdominal pain with cramping. In our emergency room we found you to have a possible partial small bowel obstruction with a dilated bowel, and narrowing of the small bowel, and then a deflated bowel after the narrowing. You have had previous gastric bypass surgery as well. You described to us that you have been having a high-fiber diet with lots of fruits and vegetables. As we put the picture together, we think that you are eating too high of a fiber diet, your bowel could not take it and became partially obstructed. We gave you a Gastrografin challenge which made you have copious bowel movements. Your abdomen deflated. And you felt stable enough to go home. General surgery consulted on your case and they also felt you were stable enough to go home. Plan of Treatment: Please eat a low fiber diet at home. Eat small frequent meals. Drink plenty of water. Aim for at least 32 to 48 ounces a day. Please see your primary care provider in follow-up. This is for continuity of care to make sure they know why you were here. We also found to have iron deficiency anemia and she may need to give you special treatment for that because of your gastric bypass surgery. I am sending you home on your usual medications. I have not made any medication changes. Assessment: Patient is alert, oriented, states he will follow through on instruction No Smoking: If you smoke, Please STOP! Call for help. Follow-up with: Loni Justin MD [Primary Care Provider] -
--- NOTE | 2023-01-31 17:26 | DISCHARGE SUMMARY ---
Discharge Summary Admit Date: 01/30/23 Discharge Date: 01/31/23 Discharging Provider: Thu Sequeira MD Primary Care Provider: Loni Justin MD Code Status: Attempt Resuscitation Condition at Discharge: Fair Discharge Disposition: 01 Home, Self Care - DIAGNOSES Discharge Diagnoses with Status of Each Condition: 1. Partial small bowel obstruction 2. History of gastric bypass surgery 3. History of high fiber diet 4. Abdominal wall seroma 5. Memory loss 6. Acute kidney injury 7. Leukocytosis 8. Hypercalcemia 9. Iron deficiency anemia - HPI History of Present Illness: He is a 77-year-old white male who has a history of gastric bypass surgery at the age of 64. In the last few months he has had waxing and waning Lower abdominal pain. He has lost about 20 pounds. He has really emphasized a high- fiber, high vegetable diet for the last 2 years. No vomiting. He did eat an [employer] roast beef sandwich a few days ago and that induce severe epigastric cramping and substernal cramping that was horribly uncomfortable. It scared the heck out of him. No change in bowel habits. Stool color is the same as always And he denies melena. But sometimes his stool has red and it, covering the brown color. He denies urgency, frequency dysuria. But he does have hesitation, occasional retention where his urine does not want to come out and he is to think about it for a while. No change in the color of his urine. No blood in his urine, no blood in his stool. He is pretty sure he has been losing his memory. It is harder for him to remember certain things. For instance he had an event 20 years ago, maybe 25 years ago where he "almost and was in the hospital for for 5 days". But for the life of him he cannot remember what he almost from. Then he shrugs and says "I am here now so it does not matter". He did have a TIA about 15 years ago. He called his primary care provider office today because he was just worried about this chronic abdominal pain, and his provider was not available so they transferred him to the nurse advice line for the [facility], and they advised him to come to the ER. In the emergency room temperature was 36.1. Heart rate 63. Respiratory rate 24. Blood pressure 133/73. 97% saturated on room air. He had normal bowel sounds, a soft belly. He had mild tenderness with palpation of the lower abdomen without guarding or rebound. There is no peritoneal findings. He was otherwise in no acute distress. However white cell count was 33.4. Hemoglobin 12.4. Platelets 467. BUN was 32, creatinine 1.3. Glucose 128. Calcium 10.4. CT of the abdomen and pelvis has prior gastric bypass surgery with postsurgical changes in the epigastric region. He also has a bowel resection with staple line seen in the left abdomen. The anastomosis appears grossly intact. He has fluid distended small bowel loops noted in the left side of the abdomen with a few air-fluid levels. There is a suggestion of zone of transition involving mid abdomen and the distal small bowel loops are decompressed. There is no abnormal wall thickening. He has a small amount of fluid seen within the mid line anterior pelvic wall measuring 5.4 x 1 cm consistent with a postsurgical seroma. But this patient has not had surgery in years. After discussion with the ER provider, and general surgery on-call, it has been decided that the patient's white cell count of 33.4 thousand warrants an inpatient status. The patient himself is not that ill and it is a chronic complaint of several months duration but in combination with a possbile partial small bowel obstruction, mild kidney insufficiency, and an elevated white cell count (no fever) I have decided to admit the patient. History - Past Medical History Cardiovascular: reports: Hypertension, High cholesterol, Coronary artery disease (He cannot remember the year he had a stent.), Angina Respiratory: reports: None Neuro: reports: Dementia (Mild memory loss that may be getting worse, he is not sure), TIA (10 years ago) Endocrine/Autoimmune: reports: None GI: reports: Other (Gastric bypass surgery) : reports: Benign prostate hypertrophy, Retention (Mild.), Nocturia (Infrequently, once a night) HEENT: reports: None Psych: reports: Depression (Occasionally blue, it comes and goes, not severe) Musculoskeletal: reports: Osteoarthritis, Gout, Other (Fall while walking dog resulted in R shoulder girdle fracture, R fem neck bruise September 2018) Derm: reports: None MRSA Hx?: No - Past Surgical History General: reports: Gastric surgery Ortho: reports: Hip replacement, Knee replacement, Other Cardiovascular: reports: Coronary stent HEENT: reports: Tonsil/Adenoidectomy - CONSULTS | PROCEDURES Procedures: CT of the abdomen and pelvis has prior gastric bypass surgery with postsurgical changes in the epigastric region. He also has a bowel resection with staple line seen in the left abdomen. The anastomosis appears grossly intact. He has fluid distended small bowel loops noted in the left side of the abdomen with a few air-fluid levels. There is a suggestion of zone of transition involving mid abdomen and the distal small bowel loops are decompressed. There is no abnormal wall thickening. He has a small amount of fluid seen within the mid line anterior pelvic wall measuring 5.4 x 1 cm consistent with a postsurgical seroma. Gastrografin challenge showed no progression of contrast at the 1 hour study into our study beyond the mid small bowel and it suggested small bowel obstruction. Patient then had multiple bowel movements. 4-hour film showed persistent appearance of small bowel obstruction although less prominent when compared to prior exam. - HOSPITAL COURSE Hospital Course: By the time the patient was transferred to [facility] from ER, he states he was feeling much better. He was started to have flatus. And his abdomen was less distended. I did warn him that if he had any episode of emesis we would need to do an NG tube. But for the rest of his stay here he did not have any emesis. I explained a Gastrografin challenge to him and he was amenable to doing that. The Gastrografin induced several bowel movements throughout the day. What was puzzling was that the KUB films done to establish anatomy showed minimal passage of the Gastrografin. However the patient, on exam, had normal bowel sounds. No tenderness. Was having bowel movements. General surgery saw the patient again in follow-up and felt the patient could go home. Patient was delighted with that. We discussed the low residue diet. Stressed the importance of good oral intake with water. After IV fluids overnight, his creatinine had come down to normal at 0.7 from his initial 1.3. Because of his anemia, and previous gastric bypass history, I did do anemia analysis. His iron is quite low at 20, TIBC 322, percent saturation 6. Transferrin 230. His ferritin is 83.2. He takes a lot of B12 at home and his B12 level is 3499. High normal is 914 so he is supratherapeutic. TSH normal at 2.35. Discharge exam had a temperature of 36.7. Heart rate 79. Blood pressure 154/76. Respirations 20. 97% on room air. He is a 5 foot 6 inches male, 64.5 kg. Neck was supple. Lungs were clear. Regular rate and rhythm. Abdomen was soft, nontender, hyperactive bowel sounds. No rebound or guarding. Extremities were without edema. Patient was discharged in stable condition. Asked to follow-up with his primary care provider. Given information on a low residue diet.Asked to follow-up with his primary care provider about the treatment of his iron deficiency anemia. He may warrant iron infusions if he is not absorbing from small bowel. - ALLERGIES Allergies/Adverse Reactions: Allergies Allergy/AdvReac Type Severity Reaction Status Date / Time oxycodone [From OxyContin] Allergy Itching Verified 01/30/23 15:47 - MEDICATIONS Home Medications: Ambulatory Orders Medication Instructions Recorded Confirmed allopurinoL [Allopurinol] 100 mg PO DAILY 09/22/18 01/31/23 amLODIPine [Norvasc] 10 mg PO DAILY 09/22/18 01/31/23 Atenolol [Tenormin] 50 mg PO DAILY 01/31/23 01/31/23 Atorvastatin Calcium 40 mg PO QPM 01/31/23 01/31/23 Celecoxib [Celebrex] 200 mg PO DAILY 01/31/23 01/31/23 - LABS Result Diagrams: 01/31/23 05:05 01/31/23 05:05
[2023-02-01 06:10] LABS: RPR Non Reactive (Non Reactive)
== END 2023-01-31 17:54 | disposition home or self-care (01) ==
LOC: ED 15:36 → INTOOBSV 17:54 → MS2 17:54
PROVIDERS: ADMIT Specialist; ATTEND Specialist
DX: D72.823 Leukemoid reaction (principal); N17.9 Acute kidney failure, unspecified; E83.52 Hypercalcemia; K56.690 Other partial intestinal obstruction; M79.81 Nontraumatic hematoma of soft tissue; I10 Essential (primary) hypertension; Z98.84 Bariatric surgery status; F03.90 Unspecified dementia, unspecified severity, without behavioral disturbance, psychotic disturbance, mood disturbance, and anxiety; Z95.5 Presence of coronary angioplasty implant and graft; Z87.891 Personal history of nicotine dependence; I25.10 Atherosclerotic heart disease of native coronary artery without angina pectoris; Z20.822 Contact with and (suspected) exposure to COVID-19
CPT/HCPCS: 36415; 71045; 74018; 74177; 74250; 80048; 80053; 81001; 82607; 82728; 83540; 83690; 84443; 84466; 85025; 86592; 87633; 96360; 99284; 99285; A9270; G0378; Q9963; Q9967; 81003; 87086

== ENCOUNTER 2023-05-15 11:52 | Outpatient (CLI) | payer MEDICARE | END 2023-05-15 23:59 | disposition short-term general hospital (02) | LOC: EMS 11:52 | DX: R53.1 Weakness (principal); R06.02 Shortness of breath; R42 Dizziness and giddiness | CPT/HCPCS: A0425; A0429; A0888 ==